=== PATIENT | female | born 1960 | race Caucasian/White ===

== ENCOUNTER → 2020-07-04 12:08 | Outpatient (CLI) | payer BC, SELFPAY ==
--- NOTE | ~2020-07-04 | MM_ITS ---
EXAMINATION: MM screening janna BI w albert HISTORY: Screening mammogram TECHNIQUE: Craniocaudal and mediolateral oblique 3-D tomosynthesis images were obtained and synthetic 2-D images were generated. CAD analysis was submitted and interpreted. COMPARISON: No prior mammogram is available for comparison at this institution. BREAST PARENCHYMAL COMPOSITION: There are scattered areas of fibroglandular density. FINDINGS: There is no evidence of suspicious mass, calcification, or architectural distortion to sugg est malignancy in either breast. There has been no suspicious interval change. IMPRESSION: 1. No mammographic evidence of malignancy. 2. Recommend routine screening mammography in one year. BI-RADS Category 1: Negative Reviewed, dictated and finalized at location A. INATION OPERATOR
--- NOTE | ~2020-07-04 | DEXA_ITS ---
Bone Density Report Name: Marj Cotton Age: 60 Sex: Female Ethnicity: White Date of : 1960 Indication: postmenopausal; screening for osteoporosis; height loss; Referring Provider: Maryann Ahn Study: Bone densitometry was performed. Exam Date: July 04, 2020 Accession number: [id number] Bone Density: Region BMD T-score Z-score Classification AP Spine (L1-L4) 0.814 -2.1 -0.6 Osteopenia Femoral Neck (Left) 0.665 -1.7 -0.3 Osteopenia Total Hip (Left) 0.765 -1.5 -0.4 Osteopenia Femoral Neck (Right) 0.685 -1.5 -0.1 Osteopenia Total Hip (Right) 0.787 -1.3 -0.3 Osteopenia Total Hip Mean 0.776 -1.4 -0.4 Osteopenia World Health Organization criteria for BMD impression classify patients as: Normal (T-score at or above -1.0), Osteopenia (T-score between -1.0 and -2.5), or Osteoporosis (T-score at or below -2.5). 10-year Fracture Risk(1): Major Osteoporotic Fracture 8.6% Hip Fracture 1.4% Reported Risk Factors: [place] (), Neck BMD=0.665, BMI=28.3, smoking (1) FRAX(R) Version 3.08. Fracture probability calculated for an untreated patient. Fracture probability may be lower if the patient has received treatment. Clinical Information Provided by Patient: Smokes Has used the following medications: Vitamin D Patient maximum height was 65 Menopause Age: 53 No regular weight bearing exercise Drinks caffeinated beverages Onset of menses at age 12 Number of children 2 Impression: The patient has low bone mass, based on the Total Spine T-score. The patient has an estimated ten-year risk of hip fracture of 1.4% and an estimated ten-year risk of major fracture of 8.6%, based on the WHO FRAX algorithm. The patient has risk factors, including: smoking. Discussion: BONE DENSITY IS LOW AT ONE OR MORE SKELETAL SITES. This patient's lowest T-score is low at one or more skeletal sites. It meets the World Health Organization's (WHO) criteria for ?low bone mass? (T-score between -1.0 and -2.5). The patient's 10-year risk of fracture as calculated by FRAX is less than the threshold where pharmacological therapy is recommended by the National Osteoporosis Foundation (NOF). However, all treatment decisions require clinical judgment and consideration of individual patient factors, including patient preferences, comorbidities, previous drug use, risk factors not captured in the FRAX model (e.g., frailty, falls, vitamin D deficiency, increased bone turnover, interval significant decline in bone density) and possible under or overestimation of fracture risk by FRAX. The patient should follow a healthful lifestyle (good nutrition with adequate calcium and vitamin D, and appropriate weight-bearing exercise). Follow-Up: Consider repeating this study in 2 to 3 years to reassess this patient's status, or sooner i
== END ==
PROVIDERS: PCP Internal Medicine; Visit Provider Nurse Practitioner
DX: Z12.31 Encounter for screening mammogram for malignant neoplasm of breast (principal); Z13.820 Encounter for screening for osteoporosis; M85.852 Other specified disorders of bone density and structure, left thigh; M85.851 Other specified disorders of bone density and structure, right thigh
CPT/HCPCS: 77063; 77067; 77080

== ENCOUNTER → 2021-10-17 13:40 | Outpatient (CLI) | payer OTHER, SELFPAY ==
--- NOTE | ~2021-10-17 | MM_ITS ---
EXAMINATION: MM screening janna BI w albert HISTORY: Screening TECHNIQUE: Craniocaudal and mediolateral oblique 3-D tomosynthesis images were obtained and synthetic 2-D images were generated. CAD analysis was submitted and interpreted. COMPARISON: 07/04/2020 BREAST PARENCHYMAL COMPOSITION: There are scattered areas of fibroglandular density. FINDINGS: There is no evidence of suspicious mass, calcification, or architectural distortion to sugg est malignancy in either breast. There has been no suspicious interval change. IMPRESSION: 1. No mammographic evidence of malignancy. 2. Recommend routine screening mammography in one year. BI-RADS Category 1: Negative Reviewed, dictated and finalized at location A. SETTER
== END ==
PROVIDERS: PCP Internal Medicine; Visit Provider Nurse Practitioner
DX: Z12.31 Encounter for screening mammogram for malignant neoplasm of breast (principal)
CPT/HCPCS: 77063; 77067

== ENCOUNTER → 2022-02-14 07:35 | Outpatient (CLI) | payer SELFPAY ==
--- NOTE | ~2022-02-14 | CT_ITS ---
EXAMINATION: CT diagnostic chest w con DATE: 02/14/2022 08:37 INDICATION: Other specified diseases of the upper respiratory tract, tracheal nodule TECHNIQUE: Transaxial computed tomographic images of the chest were obtained after the administration of 75 cc of Omnipaque 350 intravenous contrast. The dose-length product (DLP) was 167.34 mGy-cm. Ite rative reconstruction was used. COMPARISON: None FINDINGS: There is mild emphysema. The lungs are free of focal airspace opacities. There is mild depe ndent atelectasis. No pleural effusion or pneumothorax. Calcified pulmonary nodules are consistent wi th old granulomatous disease. No pathologically enlarged thoracic lymph nodes are identified. The hea rt size is normal. There is mild thoracic spondylosis. No definite tracheal nodule is identified. IMPRESSION: 1. No acute cardiopulmonary abnormality. 2. No definite tracheal nodule identified. Comparison with any available prior imaging would be helpf ul. Reviewed, dictated and finalized at location B.
--- NOTE | ~2022-02-14 | CT_ITS ---
ORIGINAL REPORT EXAMINATION: CT diagnostic chest w con DATE: 02/14/2022 08:37 INDICATION: Other specified diseases of the upper respiratory tract, tracheal nodule TECHNIQUE: Transaxial computed tomographic images of the chest were obtained after the administration of 75 cc of Omnipaque 350 intravenous contrast. The dose-length product (DLP) was 167.34 mGy-cm. Ite rative reconstruction was used. COMPARISON: None FINDINGS: There is mild emphysema. The lungs are free of focal airspace opacities. There is mild depe ndent atelectasis. No pleural effusion or pneumothorax. Calcified pulmonary nodules are consistent wi th old granulomatous disease. No pathologically enlarged thoracic lymph nodes are identified. The hea rt size is normal. There is mild thoracic spondylosis. No definite tracheal nodule is identified. IMPRESSION: 1. No acute cardiopulmonary abnormality. 2. No definite tracheal nodule identified. Comparison with any available prior imaging would be helpf ul. ADDENDUM #1 This report was recreated 03/29/2022. Original report was signed by Comparison is made to outside hospital CT dated 01/14/2022. The tracheal nodule in question is seen onl y on the first image of the current study. There is overall no change in size and lesion is lower in attenuation than on the comparison CT, suggestive of a benign finding. Recommend follow-up CT of the neck with contrast in six months. Reviewed, dictated and finalized at location L. IMPRESSION: 1. No acute cardiopulmonary abnormality. 2. No definite tracheal nodule identified. Comparison with any available prior imaging would be helpful.
[2022-03-06 10:36] LABS: Estimated Glomerular Filt Rate > 60
== END ==
PROVIDERS: PCP Internal Medicine; Visit Provider Nurse Practitioner
DX: J39.8 Other specified diseases of upper respiratory tract (principal)
CPT/HCPCS: 99199; 36415; 71260; 82565; Q9967

== ENCOUNTER → 2022-07-12 13:52 | Outpatient (CLI) | payer OTHER, SELFPAY ==
--- NOTE | ~2022-07-12 | DEXA_ITS ---
Bone Density Report Name: MEGHAN VELÁSQUEZ Age: 62 Sex: Female Ethnicity: White Date of : 1960 Indication: osteopenia; height loss; prior fracture;postmenopausal Referring Provider: Maryann Ahn Study: Bone densitometry was performed. Exam Date: July 12, 2022 Accession number: [id number] Bone Density: Region BMD T-score Z-score Classification AP Spine (L1-L4) 0.830 -2.0 -0.3 Osteopenia Femoral Neck (Left) 0.676 -1.6 -0.1 Osteopenia Total Hip (Left) 0.747 -1.6 -0.5 Osteopenia Femoral Neck (Right) 0.678 -1.5 -0.1 Osteopenia Total Hip (Right) 0.751 -1.6 -0.4 Osteopenia Total Hip Mean 0.749 -1.6 -0.5 Osteopenia World Health Organization criteria for BMD impression classify patients as: Normal (T-score at or above -1.0), Osteopenia (T-score between -1.0 and -2.5), or Osteoporosis (T-score at or below -2.5). 10-year Fracture Risk(1): Major Osteoporotic Fracture 15% Hip Fracture 2.5% Reported Risk Factors: [place] (), Neck BMD=0.678, BMI=26.6, previous fracture, smoking (1) FRAX(R) Version 3.08. Fracture probability calculated for an untreated patient. Fracture probability may be lower if the patient has received treatment. Previous Exams: Region Exam Age BMD T-score BMD Change BMD Change Date g/cm2 vs Baseline vs Previous AP Spine(L1-L4) 07/12/2022 62 0.830 -2.0 0.016 0.016 07/04/2020 60 0.814 -2.1 Total Hip(Left) 07/12/2022 62 0.747 -1.6 -0.017 -0.017 07/04/2020 60 0.765 -1.5 Total Hip(Right) 07/12/2022 62 0.751 -1.6 -0.036* -0.036* 07/04/2020 60 0.787 -1.3 *Denotes significance at 95% confidence level, LSC for AP Spine = 0.022 g/cm2, LSC for Total Hip = 0.027 g/cm2 Clinical Information Provided by Patient: Has had a low trauma fracture Smokes Has used the following medications: Vitamin D Patient maximum height was 65 Menopause Age: 53 No regular weight bearing exercise Does not regularly consume dairy products Drinks caffeinated beverages Onset of menses at age 12 Number of children 2 Impression: The patient has low bone mass, based on the Total Spine T-score. The patient has an estimated ten-year risk of hip fracture of 2.5% and an estimated ten-year risk of major fracture of 15%, based on the WHO FRAX algorithm. The patient has risk factors, including: smoking, previous fracture. The BMD for the Total Hip(Right) decreased, changing by -0.036
== END ==
PROVIDERS: PCP Nurse Practitioner; Visit Provider Nurse Practitioner
DX: Z78.0 Asymptomatic menopausal state (principal); Z13.820 Encounter for screening for osteoporosis; M85.88 Other specified disorders of bone density and structure, other site; M85.852 Other specified disorders of bone density and structure, left thigh; M85.851 Other specified disorders of bone density and structure, right thigh
CPT/HCPCS: 77080

== ENCOUNTER → 2022-08-20 13:49 | Outpatient (CLI) | payer OTHER, SELFPAY ==
--- NOTE | ~2022-08-20 | CT_ITS ---
EXAMINATION: CT soft tissue neck w con DATE: 08/20/2022 14:22 INDICATION: Tracheal nodule. TECHNIQUE: Computed tomography (CT) of the neck was performed with 75 mL Omnipaque-350 intravenous co ntrast. Automated exposure control and iterative reconstruction technique were employed. The dose-samia gth product was 387.28 mGy-cm. COMPARISON: Chest CT 02/14/2022, chest CT 01/14/2022 FINDINGS: There are no pathologically enlarged lymph nodes. There is no visible plaque in the proxima l internal carotid arteries. There is focal thickening of anterior wall of the superior trachea. Ther e is mild mucosal thickening in the paranasal sinuses. The mastoid air cells are normal. There is sev ere cervical spondylosis. IMPRESSION: 1. Focal thickening of the anterior wall of the superior trachea, stable from 01/14/2022, likely benign . Reviewed, dictated and finalized at location A. CTION MOLDING SUPERVISOR IMPRESSION: 1. Focal thickening of the anterior wall of the superior trachea, stable from , likely benign.
[2022-08-20 14:13] LABS: Estimated Glomerular Filt Rate > 60
== END ==
PROVIDERS: PCP Nurse Practitioner; Visit Provider Nurse Practitioner
DX: J39.8 Other specified diseases of upper respiratory tract (principal)
CPT/HCPCS: 70491; Q9967

== ENCOUNTER → 2023-05-30 13:43 | Outpatient (CLI) | payer OTHER, SELFPAY ==
--- NOTE | ~2023-05-30 | MM_ITS ---
EXAMINATION: MM screening janna BI w albert HISTORY: Screening TECHNIQUE: Craniocaudal and mediolateral oblique 3-D tomosynthesis images were obtained and synthetic 2-D images were generated. CAD analysis was submitted and interpreted. COMPARISON: No prior mammogram is available for comparison at this institution. BREAST PARENCHYMAL COMPOSITION: There are scattered areas of fibroglandular density. FINDINGS: There is no evidence of suspicious mass, calcification, or architectural distortion to sugg est malignancy in either breast. There has been no suspicious interval change. IMPRESSION: 1. No mammographic evidence of malignancy. 2. Recommend routine screening mammography in one year. BI-RADS Category 1: Negative Reviewed, dictated and finalized at location A.
== END ==
PROVIDERS: PCP Nurse Practitioner; Visit Provider Nurse Practitioner
DX: Z12.31 Encounter for screening mammogram for malignant neoplasm of breast (principal)
CPT/HCPCS: 77063; 77067

== ENCOUNTER 2024-11-11 15:11 | Outpatient (CLI) | payer MEDICARE, SELFPAY ==
[2024-11-11 15:29] LABS: Kit Draw Collected
--- OUTSIDE RECORDS SUMMARY | 2024-11-11 16:28 | XMS_ITS ---
Author Organization [facility] Address [address] [place] [address] Care Team Providers Care Personal Banking Representative Name Role Phone No, Physician Unavailable Alfredo Healy DO Primary Care Provider [phone] Active Problems Problem Noted Date Diagnosed Date Syncope and collapse 01/14/2022 Assessment & Plan (01/17/2022 8:48 AM CDT): Etiology sounds most consistent with vasovagal (shortly after standing up from bed) with possible contribution of dehydration after working in garage all day prior, plus has baseline bradycardia from propranolol. History and lactate are inconsistent with generalized tonic/clonic seizure. No cardiac prodrome. ECG with sinus leandro. Trop undetectable x2. CT PE without pulmonary embolism. TTE with normal EF and overall unremarkable. Cardiology consulted per request of anesthesia, agree with vasovagal diagnosis, agree with holding propranolol. Stopped propranolol, bradycardia improved. Assessment & Plan (01/16/2022 4:19 PM CDT): Etiology sounds most consistent with vasovagal (shortly after standing up from bed) with possible contribution of dehydration after working in garage all day prior, plus has bradycardia from propranolol. History and lactate are inconsistent with generalized tonic/clonic seizure. No cardiac prodrome. ECG with sinus leandro. Trop <[address] PE without pulmonary embolism. Cardiology consulted per request of anesthesia, agree with vasovagal diagnosis, agree with holding propranolol - hold propranolol - TTE with normal EF and overall unremarkable -CTM on telemetry, showing persistent mild sinus bradycardia Assessment & Plan (01/15/2022 12:04 PM CDT): Etiology sounds most consistent with vasovagal (shortly after standing up from bed) with possible contribution of dehydration after working in garage all day prior, plus has bradycardia from propranolol. History and lactate are inconsistent with generalized tonic/clonic seizure. No cardiac prodrome. ECG with sinus leandro. Trop <[address] PE without pulmonary embolism. - Cont IVF for now - hold propranolol - TTE with normal EF and overall unremarkable COVID-19 01/14/2022 Assessment & Plan (01/17/2022 8:50 AM CDT): Noted incidentally on routine pre-admission/pre-op testing, PCR positive on 01/14. Pt thinks her cough is about the same as usual smoker's cough. Report of desaturation in ED but not documented in vitals. Was on room air on floor, however post- operatively has required some oxygen 0-2L intermittently. Weaned to room air the day prior to discharge. CT chest with clear lungs. Finished remdesivir for 3 day course (01/14- 01/16) to reduce risk of progression. Did not treat with steroids. Will finish 10-day quarantine on 01/24. Assessment & Plan (01/16/2022 4:24 PM CDT): Pt thinks her cough is about the same as usual. Report of desaturation in ED but not documented in vitals. Was on room air, however post-operatively has required some oxygen 0-2L intermittently. Continue to wean oxygen - Finished remdesivir for 3 day course (01/14-01/16) to reduce risk of progression -CT chest with clear lungs - holding on dexamethasone Assessment & Plan (01/15/2022 12:02 PM CDT): Pt thinks her cough is about the same as usual. Report of desaturation in ED but not documented in vitals and now SpO2 97-100% on RA. Took off supplemental O2, saturating well on room air - remdesivir for 3 day course (01/14-01/16) to reduce risk of progression - holding on dexamethasone unless she develops hypoxia Bicytopenia 01/14/2022 Cancer Staging:Clinical: Unsigned Assessment & Plan (01/17/2022 8:51 AM CDT): Noted mild leukopenia and thrombocytopenia. HIV and HCV negative. Post-op, again developed mild thrombocytopenia, but no bleeding. May be related to COVID. Assessment & Plan (01/16/2022 4:25 PM CDT): Resolved. HIV and HCV negative.. Post-op, again developed mild thrombocytopenia. Repeat CBC in AM. Assessment & Plan (01/15/2022 12:01 PM CDT): Resolved. HIV and HCV negative.. Tracheal nodule 01/14/2022 Assessment & Plan (01/17/2022 8:52 AM CDT): Incidental finding on CT PE. Differential includes mucus and neoplasm. Needs repeat CT scan of chest with contrast in 1 month per radiology recs. Patient informed of need for follow-up and she agrees to address with PCP. Assessment & Plan (01/16/2022 4:25 PM CDT): Incidental finding on CT PE. Differential includes mucus and neoplasm. Plan for repeat CT scan in 1 month per radiology recs. Assessment & Plan (01/15/2022 12:05 PM CDT): Incidental finding on CT PE. Differential includes mucus and neoplasm. Plan for repeat CT scan in 1 month per radiology recs. Bimalleolar ankle fracture, right, closed, initial encounter 01/14/2022 Overview (01/15/2022): Added automatically from request for surgery [id number] UTI (urinary tract infection) 03/03/2019 Acute pain due to trauma 03/03/2019 Anxiety 03/03/2019 Closed displaced trimalleolar fracture of right ankle 03/02/2019 Assessment & Plan (01/17/2022 8:46 AM CDT): Reduced by Orthopedics in the ED. ORIF performed 01/15. - pain control with percocet 10/325mg q 4 PRN then hydromorphone second line for breakthrough - vit D checked given prior fractures, normal at 40. Consider outpatient DEXA - DVT proph with lovenox in place, ASA 81mg BID x14 days at discharge. - D/c home today, outpatient f/u with ortho Assessment & Plan (01/16/2022 4:17 PM CDT): Reduced by Orthopedics in the ED. ORIF performed 01/15. - pain control with oxy 5 q 4 PRN then hydromorphone second line for breakthrough - vit D checked given prior fractures, normal at 40. Consider outpatient DEXA - DVT proph with lovenox in place, ASA 81mg BID x14 days at discharge. - anticipate D/C home tomorrow Assessment & Plan (01/15/2022 12:02 PM CDT): Reduced by Orthopedics in the ED. They plan to perform ORIF today. - pain control with oxy 5 q 4 PRN then hydromorphone second line for breakthrough - vit D check - DVT proph - anticipate D/C home as early as tomorrow Primary insomnia 03/13/2016 Tobacco use disorder 03/13/2016 Assessment & Plan (01/17/2022 8:47 AM CDT): Offered patch, she declines. 0.5 PPD. Assessment & Plan (01/16/2022 4:17 PM CDT): Offered patch, she declines. 0.5 PPD. Assessment & Plan (01/14/2022 6:19 PM CDT): Offered patch, she declines. 0.5 PPD. Osteopenia 05/02/2015 Assessment & Plan (01/17/2022 8:47 AM CDT): Patient reports. Vit D level normal, consider outpatient DEXA. Assessment & Plan (01/16/2022 4:17 PM CDT): Patient reports. Vit D level normal, consider outpatient DEXA. Assessment & Plan (01/14/2022 6:18 PM CDT): Patient reports. Checking Vit D level. Vitamin D insufficiency 03/09/2015 Essential tremor 01/18/2015 Assessment & Plan (01/17/2022 8:47 AM CDT): Says she previously had bradycardia issues with propranolol 20 so is on 10 mg. Now with syncope will hold it. Started gabapentin 300 BID as replacement for propranolol, could also trial topiramate in future. Patient reports improvement in tremor. Follow up with PCP. Assessment & Plan (01/16/2022 4:18 PM CDT): Says she previously had bradycardia issues with propranolol 20 so is on 10 mg. Now with syncope will hold it. Started gabapentin 300 BID as replacement for propranolol, could also trial topiramate in future. Follow up with PCP. Assessment & Plan (01/15/2022 12:03 PM CDT): Says she previously had bradycardia issues with propranolol 20 so is on 10 mg. Now with syncope will hold it. Started gabapentin 300 BID as replacement for propranolol, could also trial topiramate in future. Personal history of malignant neoplasm of skin 0 11/20/2013 Overview (04/01/2019): IMO cleanup 10.1.17 IMO 4..2018 Regulatory Update Basal cell carcinoma of left shoulder 09/04/2013 Actinic keratosis 06/02/2013 Current Treatment and Therapy Plans No current plan information found. Past Treatment and Therapy Plans No past plan information found. Lifetime Dose Tracking * Chemical Lifetime Dose Automatic Entry Manual Entr y Fluoro Time 4.318 minutes 4.318 minutes 0 minutes Air kerma at the reference point (Ka,r) 9.92 mGy 9 .92 mGy 0 mGy DLP 1,583 mGycm 1,583 mGycm 0 mGycm Resolved Problems Problem Noted Date Diagnosed Date Resolved Date Closed fracture of right elbow 03/17/2020 01/14/2022 Overview (03/17/2020): Added automatically from request for surgery [id number]
--- OUTSIDE RECORDS SUMMARY | 2024-11-11 16:28 | XMS_ITS | Clinical Summary ---
Author Organization [facility] Address [address] [place] [address] Care Team Providers Care Brine Maker Name Role Phone No, Physician Unavailable Alfredo Healy DO Primary Care Provider [phone] Allergies Active Allergy Reactions Criticality Noted Date Comments Sulfa (Sulfonamide Antibiotics) Hives Medium 05/13 Medications cholecalciferol (VITAMIN D-3) 25 mcg (1,000 unit) tablet Take 1,000 Units by mouth 2 times daily 10/11/2017 Active escitalopram (LEXAPRO) 20 mg tablet Take 20 mg by mouth daily 10/13/2018 Active gabapentin (NEURONTIN) 300 mg capsuleIndicati ons:Essential Tremor Take 1 capsule (300 mg total) by mouth 2 (two) times a day 60 capsule 1 01/17/2022 Active Active Problems Problem Noted Date Diagnosed Date [...] (01/15/2022): Added automatically from request for surgery [id number] UTI (urinary tract infection) 03/03/2019 Acute pain [...] skin 0 11/20/2013 Overview (04/01/2019): IMO cleanup ..17 IMO 4..2018 Regulatory Update Basal cell carcinoma of left shoulder 09/04/2013 Actinic keratosis 06/02/2013 Resolved Problems Problem Noted Date Diagnosed Date Resolved Date Closed fracture of right elbow 03/17/2020 01/14/2022 Overview (03/17/2020): Added automatically from request for surgery [id number] Immunizations Immunization Administration Dates Next Due Tdap 02/04/2012 Surgical History Surgery Date Site/Laterality Comments ORIF ANKLE FRACTURE 08/12/2018 - 08/11/2019 Left ELBOW FRACTURE SURGERY 08/12/2019 - 08/11/2020 Right WRIST FRACTURE SURGERY 08/12/2019 - 08/11/2020 Left COLONOSCOPY WISDOM TOOTH EXTRACTION Medical History Medical History Date Comments Anxiety Osteopenia Essential tremor Tobacco use disorder Family History Medical History Relation Name Comments PONV Mother Relation Name Status Comments Mother Social History Tobacco Use Types Packs/Day Years Used Date Smoking Tobacco: Every Day Cigarettes Smokeless Tobacco: Never Alcohol Use Standard Drinks/Week Comments Never 0 (1 standard drink = 0.6 oz pur e alcohol) Social Connection and Isolat ion Panel [NHANES] Answer Date Recorded In a typical week, how many times do you talk on the phone with family, friends, or neighbors? Three times a week 01/18/2022 How often do you get togethe r with friends or relatives? Three times a week 01/18/2022 How often do you attend chur ch or latter-day services? More than 4 times per year 01/18/2022 Do you belong to any clubs o r organizations such as evangelical groups, unions, fraternal or athletic groups, or school groups? Yes 01/18/2022 How often do you attend meet ings of the clubs or organizations you belong to? 1 to 4 times per year 01/18/2022 Are you , , di vorced, , never , or living with a partner? 01/18/2022 AUDIT-C Answer Date Recorded Frequency of Alcohol Consumption Never 03/03/2019 Average Number of Drinks Not on file 019 Frequency of Binge Drinking Not on file 02/10 Overall Financial Resource Strain (CARDIA) Answe r Date Recorded How hard is it for you to pa y for the very basics like food, housing, medical care, and heating? Not hard at all 01/18/2022 Hunger Vital Sign Answer Date Recorded Within the past 12 months, y ou worried that your food would run out before you got the money to buy more. Never true 01/19/20 Within the past 12 months, t he food you bought just didn't last and you didn't have money to get more. Never true 01/18/2022 PRAPARE - Transportation Answer Date Re corded In the past 12 months, has l ack of transportation kept you from medical appointments or from getting medications? No 04/2022 In the past 12 months, has l ack of transportation kept you from meetings, work, or from getting things needed for daily living? No 01/18/2022 Housing Stability Vital Sign Answer Tre e Recorded In the last 12 months, was t here a time when you were not able to pay the mortgage or rent on time? No 01/18/2022 In the last 12 months, how many places have you lived? 1 01/18/2022 In the last 12 months, was t here a time when you did not have a steady place to sleep or slept in a usp (including now)? No 01/18/2022 Comments No Sex and Gender Information Value Date Recorded Sex Assigned at Not on file Legal Sex Female 2:04 PM CDT Gender Identity Not on file Sexual Orientation Not on file Obstetrics History Last Filed Vital Signs Vital Sign Reading Time Taken Comments Blood Pressure 107/53 01/17/2022 7:45 AM CDT Pulse 61 01/17/2022 7:45 AM CDT Temperature 36.9 C (98.4 F) 01/17/2022 7:45 AM CDT Respiratory Rate 16 01/17/2022 7:45 AM CDT Oxygen Saturation 94% 01/17/2022 7:45 AM CDT Inhaled Oxygen Concentration - - Weight 69.9 kg (154 lb) 01/14/2022 9:04 AM CDT Height 162.6 cm (5' 4 ) 01/14/2022 9:04 AM CDT Body Mass Index 26.43 01/14/2022 9:04 AM CDT Plan of Treatment Health Maintenance Due Date Last Done Comments Breast Cancer Screening-Mammogram 1959 Cervical Cancer Screening 1959 Colon Cancer Screening-Colonoscopy 1959 Depression Screening 1959 Osteoporosis Screening-Bone Density Scan 1959 Hepatitis B Screening 1977 Pneumococcal vaccine 65+ (1 of 2 - PCV) 1978 Zoster Vaccine (1 of 2) 2009 DTaP/Tdap/Td Vaccine (2 - Td or Tdap) 02/03/2022 Fall Risk Assessment 01/17/2023 01/17/2022 Well Visit 65+ 2024 Covid-19 Vaccine (3 - season) 04/12/202406/2021, 10/25/2020 Influenza Vaccine (#1) 2024 Hepatitis C Screening Completed 01/14/2022 Medical Devices Implanted Type Area Blending Machine Feeder Device Identifier Shelf Expiration Date Model / Serial / Lot Synthes Carbon Timo Implanted:Qty: 1 on 03/03/2019 by Marco Frye MD at [facility] Left: Leg Synthes I 394.88 / / Description:IMPLANT TIMES AR E APPROXIMATED 11 X 450 Carbon Timo Implanted:Qty: 1 on 03/03/2019 by Marco Frye MD at [facility] Left: Leg Synthes I [id number] / / Description:IMPLANT TIMES AR E APPROXIMATED 11 X 400 Carbon Timo Implanted:Qty: 1 on 03/03/2019 by Marco Frye MD at [facility] Left: Leg Synthes I [id number] / / Description:IMPLANT TIMES AR E APPROXIMATED 11 X 200 Carbon Timo Implanted:Qty: 1 on 03/03/2019 by Marco Frye MD at [facility] Left: Leg Synthes I [id number] / / Description:IMPLANT TIMES AR E APPROXIMATED Large Combo Clamp Implanted:Qty: 7 on 03/03/2019 by Marco Frye MD at [facility] Left: Leg Synthes I [id number] / / Description:IMPLANT TIMES AR E APPROXIMATED Synthes 294.55 Schanz 5mm 170mm 50mm Blunt Trocar Point Xlong Screw External - [id number] Implanted:Qty: 2 on 03/03/2019 by Marco Frye MD at [facility] Left: Leg Synthes I 294.55 / / Description:IMPLANT TIMES AR E APPROXIMATED Trans Calc Pin Implanted:Qty: 1 on 03/03/2019 by Marco Frye MD at [facility] Left: Leg Synthes I [id number] / / Description:IMPLANT TIMES AR E APPROXIMATED Protective Cap 5.0 Implanted:Qty: 1 on 03/03/2019 by Marco Frye MD at [facility] Left: Leg Synthes I [id number] / / Description:IMPLANT TIMES AR E APPROXIMATED Synthes 204.830 3.5mm 6mm 30mm 2.5mm Self Tap Small Hexagonal Socket Low Profile - [id number] Implanted:Qty: 1 on 03/10/2019 by Marco Frye MD at [facility] Synthes I 204.830 / / Synthes 204.828 3.5mm 6mm 28mm 2.5mm Self Tap Small Hexagonal Socket Low Profile - [id number] Implanted:Qty: 1 on 03/10/2019 by Marco Frye MD at [facility] Synthes I 204.828 / / Synthes 204.826 3.5mm 6mm 26mm 2.5mm Self Tap Small Hexagonal Socket Low Profile - [id number] Implanted:Qty: 1 on 03/10/2019 by Marco Frye MD at [facility] Synthes I 204.826 / / Synthes 204.842 3.5mm 6mm 42mm 2.5mm Self Tap Small Hexagonal Socket Low Profile - [id number] Implanted:Qty: 2 on 03/10/2019 by Marco Frye MD at [facility] Synthes I 204.842 / / Synthes 247.370 Lcp Pro-Serg 97mm 12 Hole Adaption Low Profile Cut To Length Plate - [id number] Implanted:Qty: 1 on 03/10/2019 by Marco Frye MD at [facility] Synthes I 247.370 / / Synthes 202.878 2.7mm 5mm 18mm 2.5mm Self Tap Stardrive Cortical T8 Screw Bone - [id number] Implanted:Qty: 1 on 03/10/2019 by Marco Frye MD at [facility] Synthes I 202.878 / / Synthes 202.880 2.7mm 5mm 20mm 2.5mm Self Tap Stardrive Cortical T8 Screw Bone - [id number] Implanted:Qty: 1 on 03/10/2019 by Marco Frye MD at [facility] Synthes I 202.880 / / Synthes 202.876 2.7mm 5mm 16mm 2.5mm Self Tap Stardrive Cortical T8 Screw Bone - [id number] Implanted:Qty: 2 on 03/10/2019 by Marco Frye MD at [facility] Synthes I 202.876 / / Synthes 202.888 2.7mm 5mm 28mm 2.5mm Self Tap Stardrive Cortical T8 Screw Bone - [id number] Implanted:Qty: 1 on 03/10/2019 by Marco Frye MD at [facility] Synthes I 202.888 / / Synthes 202.886 2.7mm 5mm 26mm 2.5mm Self Tap Stardrive Cortical T8 Screw Bone - [id number] Implanted:Qty: 1 on 03/10/2019 by Marco Frye MD at [facility] Synthes I 202.886 / / Synthes 241.361 Lcp 12mm [id number] .7mm 6 Hole Collar 1/3 Tubular Plate Bone - [id number] Implanted:Qty: 1 on 03/10/2019 by Marco Frye MD at [facility] Synthes I 241.361 / / Synthes 204.875 3.5mm 6mm 75mm 2.5mm Self Tap Small Hexagonal Socket Low Profile - [id number] Implanted:Qty: 1 on 03/10/2019 by Marco Frye MD at [facility] Synthes I 204.875 / / Synthes 204.870 3.5mm 6mm 70mm 2.5mm Self Tap Small Hexagonal Socket Low Profile - [id number] Implanted:Qty: 1 on 03/10/2019 by Marco Frye MD at [facility] Synthes I 204.870 / / Synthes 204.840 3.5mm 6mm 40mm 2.5mm Self Tap Small Hexagonal Socket Low Profile - [id number] Implanted:Qty: 1 on 03/10/2019 by Marco Frye MD at [facility] Synthes I 204.840 / / Synthes 204.836 3.5mm 6mm 36mm 2.5mm Self Tap Small Hexagonal Socket Low Profile - [id number] Implanted:Qty: 1 on 03/10/2019 by Marco Frye MD at [facility] Synthes I 204.836 / / Synthes 241.151 Lcp Combi 30f57v8.5mm 3 Hole Head 5 Hole Shaft Right Angle T - [id number] Implanted:Qty: 1 on 03/10/2019 by Marco Frye MD at [facility] Synthes I 241.151 / / Depuy Mitek [id number] Gii Quickanchor Plus Ethibond 2 Cp-2 Milroy Suture - S0 - [id number] Implanted:Qty: 1 on 03/18/2020 by Arnaud Iraheta MD at [facility] Right: Elbow Depuy Mitek 07/11/2024 [id number] / 0 / [id number] Ac[employer] 30-0256 3.5mm 10mm Hexalobe Screw Bone Titanium Nonsterile Small Fragment - [id number] Implanted:Qty: 3 on 03/18/2020 by Diane Huff MD at [facility] Left: Radius [employer] 30-0256 / / [employer] 70-0370 Acu-Loc 2 65mm Reduce Profile Window Radius Left Distal Volar - [id number] Implanted:Qty: 1 on 03/18/2020 by Diane Huff MD at [facility] Left: Radius [employer] 70-0370 / / [employer] Co-N2320 2.3mm 20mm Nontoggle Hexagonal Cortical Screw Bone Titanium - [id number] Implanted:Qty: 1 on 03/18/2020 by Diane Huff MD at [facility] Left: Radius [employer] CO-N2320 / / [employer] Co-T2316 2.3mm 16mm Lock Hexagonal Cortical Full Thread Screw Bone - [id number] Implanted:Qty: 4 on 03/18/2020 by Diane Huff MD at [facility] Left: Radius [employer] CO-T2316 / / [employer] 30-0258 3.5mm 14mm Hexalobe Screw Bone Titanium Nonsterile Small Fragment - [id number] Implanted:Qty: 1 on 03/18/2020 by Diane Huff MD at [facility] Left: Radius [employer] 30-0258 / / Synthes 2.7mm 5mm 18mm 2.5mm Self Tap Stardrive Cortical T8 Screw Bone 202.878 - [id number] Implanted:Qty: 2 on 01/15/2022 by Arnaud Iraheta MD at [facility] Right: Ankle Synthes I 202.878 / / Synthes Lcp Combi 99mm 5 Hole Fibula Right Distal Lateral Contour Plate 02.112.140 - [id number] Implanted:Qty: 1 on 01/15/2022 by Arnaud Iraheta MD at [facility] Right: Ankle Synthes I 02.112.140 / / Synthes 2.7mm 2.1mm 14mm Self Tap Lock Stardrive Thread Head Profile T8 202.214 - [id number] Implanted:Qty: 3 on 01/15/2022 by Arnaud Iraheta MD at [facility] Right: Ankle Synthes I 202.214 / / Synthes 2.7mm 2.1mm 16mm Self Tap Lock Stardrive Thread Head Profile T8 202.216 - [id number] Implanted:Qty: 2 on 01/15/2022 by Arnaud Iraheta MD at [facility] Right: Ankle Synthes I 202.216 / / Synthes 3.5mm 6mm 14mm 2.5mm Self Tap Small Hexagonal Socket Low Profile 204.814 - [id number] Implanted:Qty: 1 on 01/15/2022 by Arnaud Iraheta MD at [facility] Right: Ankle Synthes I 204.814 / / Synthes 3.5mm 6mm 12mm 2.5mm Self Tap Small Hexagonal Socket Low Profile 204.812 - [id number] Implanted:Qty: 2 on 01/15/2022 by Arnaud Iraheta MD at [facility] Right: Ankle Synthes I 204.812 / / Synthes 3.5mm 6mm 65mm 2.5mm Self Tap Small Hexagonal Socket Low Profile 204.865 - [id number] Implanted:Qty: 1 on 01/15/2022 by Arnaud Iraheta MD at [facility] Right: Ankle Synthes I 204.865 / / Explanted Type Area Blending Machine Feeder Device Identifier Shelf Expiration Date Model / Serial / Lot Synthes 204.842 3.5mm 6mm 42mm 2.5mm Self Tap Small Hexagonal Socket Low Profile - [id number] Explanted:Qty: 1 on 03/10/2019 at [facility] Synthes I 204.842 / / Procedures Procedure Name Priority Date/Time Associated Diagnosis Comments HEPATITIS C ANTIBODY Routine 01/14/2022 10:11 PM CDT from Last 3 Months or Most Recently Relevant to Health Maintenance Results * Hepatitis C antibody (01/14/2022 10:11 PM CDT) Hep C Ab Nonreactive Nonreactive [facility] Comment:Antibodies to HCV no t detected. Does NOT exclude the possibility of recent exposure to HCV. Blood 01/14/2022 10:1 1 PM CDT 01/14/2022 11:24 PM CDT Dudley Siddiqui MD LAB MICROBIOLOGY - GENER AL ORDERABLES Edited Result - Final [facility] [place] [address] from Last 3 Months or Most Recently Relevant to Health Maintenance Insurance CIGNA CIGNA CIGNA Advance Directives For more information, please contact: [phone] * Full Code (Latest Code Status on File) Date Activated Date Inactivated Comments 01/15/2022 8:54 PM 01/17/2022 3:15 PM * Full Code Date Activated Date Inactivated Comments 01/14/2022 5:46 PM 01/15/2022 8:54 PM * Full Code Date Activated Date Inactivated Comments 03/17/2020 11:22 PM 03/19/2020 7:29 PM * Full Code Date Activated Date Inactivated Comments 03/03/2019 11:09 AM 03/05/2019 7:49 PM Care Teams Brine Maker Relationship Specialty Start Date End Date Alfredo Healy DO PCP - General 05/23/20 No, Physician 03/19/20
--- OUTSIDE RECORDS SUMMARY | 2024-11-11 16:28 | XMS_ITS | Referral Summary ---
Author Organization [facility] Address [address] [place] [address] Care Team Providers Care Community Development Worker Name Role Phone No, Physician Unavailable Alfredo Healy DO Primary Care Provider [phone]- [phone] Allergies Active Allergy Reactions Criticality Noted Date [...] (01/15/2022): Added automatically from request for surgery [id number] UTI (urinary tract infection) 03/03/2019 Acute pain [...] (03/17/2020): Added automatically from request for surgery [id number] Immunizations Immunization Administration Dates Next Due Tdap 02/04/2012 Social History Tobacco Use Types Packs/Day Years [...] often do you attend chur ch or orthodoxy services? More than 4 times per year 01/18/2022 Do you belong to any clubs o r organizations such as synagogue groups, unions, fraternal or athletic groups, or [...] money to buy more. Never true 01/19/20 22 Within the past 12 months, t he [...] place to sleep or slept in a long term (including now)? No 01/18/2022 Comments No Sex and Gender Information Value Date Recorded Sex Assigned at Not on file Legal Sex Female 2:04 PM CDT Gender Identity Not on file Sexual Orientation Not on file Last Filed Vital Signs Vital Sign Reading [...] 01/14/2022 9:04 AM CDT Plan of Treatment Not on file Medical Devices Implanted Type Area Freezer Machine Operator Device Identifier Shelf Expiration Date Model / Serial / Lot Synthes Carbon Timo Implanted:Qty: 1 on 03/03/2019 by Marco Frye MD at [facility] Left: Leg Synthes I 394.88 / / Description:IMPLANT TIMES AR E APPROXIMATED 11 X 450 Carbon Timo Implanted:Qty: 1 on 03/03/2019 by Marco Frye MD at [facility] Left: Leg Synthes I [id number] / / Description:IMPLANT TIMES AR E APPROXIMATED 11 X 400 Carbon Timo Implanted:Qty: 1 on 03/03/2019 by Marco Frye MD at [facility] Left: Leg Synthes I [id number] / / Description:IMPLANT TIMES AR E APPROXIMATED 11 X 200 Carbon Timo Implanted:Qty: 1 on 03/03/2019 by Marco Frye MD at [facility] Left: Leg Synthes I [id number] / / Description:IMPLANT TIMES AR E APPROXIMATED Large Combo Clamp Implanted:Qty: 7 on 03/03/2019 by Marco Frye MD at [facility] Left: Leg Synthes I [id number] / / Description:IMPLANT TIMES AR E APPROXIMATED Synthes 294.55 Schanz 5mm 170mm 50mm Blunt Trocar Point Xlong Screw External - [id number] Implanted:Qty: 2 on 03/03/2019 by Marco Frye MD at [facility] Left: Leg Synthes I 294.55 / / Description:IMPLANT TIMES AR E APPROXIMATED Trans Calc Pin Implanted:Qty: 1 on 03/03/2019 by Marco Frye MD at [facility] Left: Leg Synthes I [id number] / / Description:IMPLANT TIMES AR E APPROXIMATED Protective Cap 5.0 Implanted:Qty: 1 on 03/03/2019 by Marco Frye MD at [facility] Left: Leg Synthes I [id number] / / Description:IMPLANT TIMES AR E APPROXIMATED Synthes 204.830 3.5mm 6mm 30mm 2.5mm Self Tap Small Hexagonal Socket Low Profile - [id number] Implanted:Qty: 1 on 03/10/2019 by Marco Frye MD at [facility] Synthes I 204.830 / / Synthes 204.828 3.5mm 6mm 28mm 2.5mm Self Tap Small Hexagonal Socket Low Profile - [id number] Implanted:Qty: 1 on 03/10/2019 by Marco Frye MD at [facility] Synthes I 204.828 / / Synthes 204.826 3.5mm 6mm 26mm 2.5mm Self Tap Small Hexagonal Socket Low Profile - [id number] Implanted:Qty: 1 on 03/10/2019 by Marco Frye MD at [facility] Synthes I 204.826 / / Synthes 204.842 3.5mm 6mm 42mm 2.5mm Self Tap Small Hexagonal Socket Low Profile - [id number] Implanted:Qty: 2 on 03/10/2019 by Marco Frye MD at [facility] Synthes I 204.842 / / Synthes 247.370 Lcp Pro-Serg 97mm 12 Hole Adaption Low Profile Cut To Length Plate - [id number] Implanted:Qty: 1 on 03/10/2019 by Marco Frye MD at [facility] Synthes I 247.370 / / Synthes 202.878 2.7mm 5mm 18mm 2.5mm Self Tap Stardrive Cortical T8 Screw Bone - [id number] Implanted:Qty: 1 on 03/10/2019 by Marco Frye MD at [facility] Synthes I 202.878 / / Synthes 202.880 2.7mm 5mm 20mm 2.5mm Self Tap Stardrive Cortical T8 Screw Bone - [id number] Implanted:Qty: 1 on 03/10/2019 by Marco Frye MD at [facility] Synthes I 202.880 / / Synthes 202.876 2.7mm 5mm 16mm 2.5mm Self Tap Stardrive Cortical T8 Screw Bone - [id number] Implanted:Qty: 2 on 03/10/2019 by Marco Frye MD at [facility] Synthes I 202.876 / / Synthes 202.888 2.7mm 5mm 28mm 2.5mm Self Tap Stardrive Cortical T8 Screw Bone - [id number] Implanted:Qty: 1 on 03/10/2019 by Marco Frye MD at [facility] Synthes I 202.888 / / Synthes 202.886 2.7mm 5mm 26mm 2.5mm Self Tap Stardrive Cortical T8 Screw Bone - [id number] Implanted:Qty: 1 on 03/10/2019 by Marco Frye MD at [facility] Synthes I 202.886 / / Synthes 241.361 Lcp 12mm [id number] .7mm 6 Hole Collar 1/3 Tubular Plate Bone - [id number] Implanted:Qty: 1 on 03/10/2019 by Marco Frye MD at [facility] Synthes I 241.361 / / Synthes 204.875 3.5mm 6mm 75mm 2.5mm Self Tap Small Hexagonal Socket Low Profile - [id number] Implanted:Qty: 1 on 03/10/2019 by Marco Frye MD at [facility] Synthes I 204.875 / / Synthes 204.870 3.5mm 6mm 70mm 2.5mm Self Tap Small Hexagonal Socket Low Profile - [id number] Implanted:Qty: 1 on 03/10/2019 by Marco Frye MD at [facility] Synthes I 204.870 / / Synthes 204.840 3.5mm 6mm 40mm 2.5mm Self Tap Small Hexagonal Socket Low Profile - [id number] Implanted:Qty: 1 on 03/10/2019 by Marco Frye MD at [facility] Synthes I 204.840 / / Synthes 204.836 3.5mm 6mm 36mm 2.5mm Self Tap Small Hexagonal Socket Low Profile - [id number] Implanted:Qty: 1 on 03/10/2019 by Marco Frye MD at [facility] Synthes I 204.836 / / Synthes 241.151 Lcp Combi [id number] 3 Hole Head 5 Hole Shaft Right Angle T - [id number] Implanted:Qty: 1 on 03/10/2019 by Marco Frye MD at [facility] Synthes I 241.151 / / Depuy Mitek [id number] Gii Quickanchor Plus Ethibond 2 Cp-2 [place] Suture - S0 - [id number] Implanted:Qty: 1 on 03/18/2020 by Arnaud Iraheta MD at [facility] Right: Elbow Depuy Mitek 07/11/2024 [id number] / 0 / [id number] Ac[employer] 30-0256 3.5mm 10mm Hexalobe Screw Bone Titanium Nonsterile Small Fragment - [id number] Implanted:Qty: 3 on 03/18/2020 by Diane Huff MD at [facility] Left: Radius [employer] 30-0256 / / [employer] 70-0370 Acu-Loc 2 65mm Reduce Profile Window Radius Left Distal Volar - [id number] Implanted:Qty: 1 on 03/18/2020 by Diane Huff MD at [facility] Left: Radius [employer] 70-0370 / / [employer] Co-N2320 2.3mm 20mm Nontoggle Hexagonal Cortical Screw Bone Titanium - [id number] Implanted:Qty: 1 on 03/18/2020 by Diane Huff MD at [facility] Left: Radius [employer] CO-N2320 / / [employer] Co-T2316 2.3mm 16mm Lock Hexagonal Cortical Full Thread Screw Bone - [id number] Implanted:Qty: 4 on 03/18/2020 by Diane Huff MD at [facility] Left: Radius [employer] CO-T2316 / / [employer] 30-0258 3.5mm 14mm Hexalobe Screw Bone Titanium Nonsterile Small Fragment - [id number] Implanted:Qty: 1 on 03/18/2020 by Diane Huff MD at [facility] Left: Radius [employer] 30-0258 / / Synthes 2.7mm 5mm 18mm 2.5mm Self Tap Stardrive Cortical T8 Screw Bone 202.878 - [id number] Implanted:Qty: 2 on 01/15/2022 by Arnaud Iraheta MD at [facility] Right: Ankle Synthes I 202.878 / / Synthes Lcp Combi 99mm 5 Hole Fibula Right Distal Lateral Contour Plate 02140 - [id number] Implanted:Qty: 1 on 01/15/2022 by Arnaud Iraheta MD at [facility] Right: Ankle Synthes I 02112.140 / / Synthes 2.7mm 2.1mm 14mm Self Tap Lock Stardrive Thread Head Profile T8 202.214 - [id number] Implanted:Qty: 3 on 01/15/2022 by Arnaud Iraheta MD at [facility] Right: Ankle Synthes I 202.214 / / Synthes 2.7mm 2.1mm 16mm Self Tap Lock Stardrive Thread Head Profile T8 202.216 - [id number] Implanted:Qty: 2 on 01/15/2022 by Arnaud Iraheta MD at [facility] Right: Ankle Synthes I 202.216 / / Synthes 3.5mm 6mm 14mm 2.5mm Self Tap Small Hexagonal Socket Low Profile 204.814 - [id number] Implanted:Qty: 1 on 01/15/2022 by Arnaud Iraheta MD at [facility] Right: Ankle Synthes I 204.814 / / Synthes 3.5mm 6mm 12mm 2.5mm Self Tap Small Hexagonal Socket Low Profile 204.812 - [id number] Implanted:Qty: 2 on 01/15/2022 by Arnaud Iraheta MD at [facility] Right: Ankle Synthes I 204.812 / / Synthes 3.5mm 6mm 65mm 2.5mm Self Tap Small Hexagonal Socket Low Profile 204.865 - [id number] Implanted:Qty: 1 on 01/15/2022 by Arnaud Iraheta MD at [facility] Right: Ankle Synthes I 204.865 / / Explanted Type Area Freezer Machine Operator Device Identifier Shelf Expiration Date Model / Serial / Lot Synthes 204.842 3.5mm 6mm 42mm 2.5mm Self Tap Small Hexagonal Socket Low Profile - [id number] Explanted:Qty: 1 on 03/10/2019 at [facility] Synthes I 204.842 / / Procedures Procedure Name Priority Date/Time Associated Diagnosis Comments HEPATITIS C ANTIBODY Routine 01/14/2022 10:11 PM CDT from Last 3 Months or Most Recently Relevant to Health Maintenance Results * Hepatitis C antibody (01/14/2022 10:11 PM CDT) Hep C Ab Nonreactive Nonreactive MEGAN ARNETT Comment:Antibodies to HCV no t detected. Does NOT exclude the possibility of recent exposure to HCV. Blood 01/14/2022 10:1 1 PM CDT 01/14/2022 11:24 PM CDT Dudley Siddiqui MD LAB MICROBIOLOGY - GENER AL ORDERABLES Edited Result - Final [facility] [place] [address] from Last 3 Months or Most Recently Relevant to Health Maintenance Insurance CIGNA CIGNA CIGNA Advance Directives For more information, please contact: [phone] * Full Code (Latest Code Status on File) Date Activated Date Inactivated Comments 01/15/2022 8:54 PM 01/17/2022 3:15 PM * Full Code Date Activated Date Inactivated Comments 01/14/2022 5:46 PM 01/15/2022 8:54 PM * Full Code Date Activated Date Inactivated Comments 03/17/2020 11:22 PM 03/19/2020 7:29 PM * Full Code Date Activated Date Inactivated Comments 03/03/2019 11:09 AM 03/05/2019 7:49 PM Care Teams Community Development Worker Relationship Specialty Start Date End Date Alfredo Healy DO PCP - General 05/23/20 No, Physician 03/19/20
--- OUTSIDE RECORDS SUMMARY | 2024-11-11 16:28 | XMS_ITS | Clinical Summary ---
Author Organization [facility] Address [address] [place] [address] Care Team Providers Care Bus Analyst Name Role Phone Unavailable Primary Care Provider Unavailabl e Social History Tobacco Use Types Packs/Day Years Used Date Smoking Tobacco: Never Assessed Comments Unknown Sex and Gender Information Value Date Recorded Sex Assigned at Not on file Legal Sex Female 1:05 PM DIRECTOR INTERNATIONAL Gender Identity Not on file Sexual Orientation Not on file Plan of Treatment Health Maintenance Due Date Last Done Comments Colorectal Cancer Screening Colonoscopy (10 Years) 1959 Hepatitis C 1977 Mammogram Screening 1999 Zoster Vaccines (1 of 2) 2009 DTaP, Tdap and Td Vaccines ( 2 - Td or Tdap) 02/03/2022 02/04/2012 Dexa Scan (General) 2024 Pneumococcal Vaccine: 65+ Ye ars (1 of 1 - PCV) 2024 COVID-19 Vaccine (2023-2 5 season) 2024 RSV Immunization or 60+ Years (1 - 1-dose 75+ series) 2034 Meningococcal B Vaccine Aged Out No l onger eligible based on patient's age to complete this topic Meningococcal Vaccine Aged Out No eduard duy eligible based on patient's age to complete this topic Pneumococcal Vaccine: Pediat rics (0 to 5 Years) and At-Risk Patients (6 to 64 Years) Aged Out No longer eligi ble based on patient's age to complete this topic RSV Immunizations Under 20 Months Aged Out No longer eligible based on patient's age to complete this topic
== END 2024-11-11 15:12 | disposition home or self-care (01) ==
LOC: ANHGOSHLAB 15:12
PROVIDERS: PCP Internal Medicine; Visit Provider Nurse Practitioner
DX: R25.1 Tremor, unspecified (principal); F41.9 Anxiety disorder, unspecified; F32.9 Major depressive disorder, single episode, unspecified
CPT/HCPCS: 36415

== ENCOUNTER 2025-02-16 12:39 | Outpatient (CLI) | payer MEDICARE, SELFPAY ==
--- NOTE | ~2025-02-16 | US_ITS ---
EXAM: RENAL ULTRASOUND HISTORY: R94.4 - Abnormal results of kidney function studies COMPARISON: None FINDINGS: RIGHT KIDNEY: 8.7 x 4.1 x 3.9 cm. The parenchyma of the right kidney is unremarkable in echogenicity and caliber. No hydronephrosis or renal calculi. LEFT KIDNEY: 9.2 x 3.7 x 4.0 cm No hydronephrosis or renal calculi. The parenchyma of the left kidney is unremarkable in echogenicity and caliber. BLADDER: The bladder is distended. Bilateral ureteral jets are identified. IMPRESSION: No hydronephrosis or renal calculi. Reviewed, dictated and finalized at location A.
--- OUTSIDE RECORDS SUMMARY | 2025-02-16 12:44 | XMS_ITS | Clinical Summary ---
Author Organization [facility] Address [address] [facility] [place] [address] Care Team Providers Care Spinning Room Worker Name Role Phone Maryann Ahn APRN-[facility] Primary Care Provider [phone] -[phone] Source Comments [facility],non-owned Affiliates and Associated Physician Practices is amultiple site organization consisting of ambulatory clinics and hospital sitesin [place], [place], [place] and [place]. This disclosure is being madepursuant to the Care Everywhere program and may not contain all information available regarding this patient. Last updated 18.[facility] [employer] Allergies Active Allergy Reactions Criticality Noted Date Comments Sulfa Drugs Urticaria Medium 06/02/2013 Medications * Be aware that medications may not be up to date on this document. Alwaysverify current medications with the patient. escitalopram (Lexapro) 20 MG tablet Take 1 (one) tablet by mouth once daily 11/10/2024 Active gabapentin (Neurontin) 100 MG capsule 1 (one) capsule 12/10/2024 Active gabapentin (Neurontin) 300 MG capsule Take 1 (one) capsule by mouth 2 times daily 12/10/2024 Active buPROPion XL 24hr (Wellbutrin-XL) 150 MG tablet Take 1 (one) tablet by mouth every morning 11/11/2024 Active vitamin D3 (Cholecalcifero l) 25 MCG (1000 UNITS) tablet Take 5 (five) tablets by mouth once daily Active primidone (Mysoline) 50 MG tabletIndicatio ns:Tremor, essential Take 1 (one) tablet by mouth at bedtime 90 tablet 3 02/01/2025 Active Active Problems No known active problems Encounters Date Type Department Care Team Description 02/01/2025 9:00 AM CDT Office Visit [facility] - Neurology [address] [place] [phone] Safia Mayberry APRN-INSTALLMENT LOAN COLLECTOR Tremor, essential (Primary Dx); Pre-op evaluation 02/01/2025 Travel from Last 3 Months Social History Tobacco Use Types Packs/Day Years Used Date Smoking Tobacco: Never Assessed Comments Unknown Sex and Gender Information Value Date Recorded Sex Assigned at Not on file Legal Sex Female 10:42 AM CDT Gender Identity Not on file Sexual Orientation Not on file Last Filed Vital Signs Vital Sign Reading Time Taken Comments Blood Pressure 119/73 02/01/2025 8:52 AM CDT Pulse 62 02/01/2025 8:52 AM CDT Temperature - - Respiratory Rate - - Oxygen Saturation 97% 02/01/2025 8:52 AM CDT Inhaled Oxygen Concentration - - Weight 69.9 kg (154 lb) 02/01/2025 8:52 AM CDT Height - - Body Mass Index - - Plan of Treatment Upcoming Encounters Date Type Department Care Team (Late st Contact Info) Description 02/18/2025 9:00 AM CDT Procedure visit [facility] - Neurology [address] [place] [phone] Ludwig Clark MD [address] [place] [address] [place] [address] Health Maintenance Due Date Last Done Comments BONE DENSITY TESTING 1960 COLOGUARD (AGES 45-75) - COL ON CA SCREENING 1959 COLON MONITORING 1959 COLONOSCOPY - COLON CA SCREENING 1959 CT COLONOGRAPHY - COLON CA SCREENING 1959 Colorectal Cancer Screening 1959 FIT - COLON CA SCREENING 1959 FLEX SIG - COLON CA SCREENING 1959 HIV SCREENING 1974 HEPATITIS C SCREENING 04/04/1977 DTAP/TDAP/TD VACCINES (1 - Tdap) 1978 PAP SMEAR 1980 PNEUMOCOCCAL VACCINE 50+ (1 of 1 - PCV) 2009 ZOSTER VACCINE (1 of 2) 2009 MAMMOGRAM 04/03/2018 04/03/2016, 03/15/2015, 06/05/2013 LIPID TESTING 10/09/2022 10/09/2017 COVID-19 VACCINE (1 - 2023-2 5 season) 2024 DEPRESSION SCREENING 08/12/2024 INFLUENZA VACCINE (#1) 2025 Respiratory Syncytial Virus (RSV) Vaccine Pt: or over 60 yrs (1 - 1-dose 75+ series) 2034 HEPATITIS B VACCINE Aged Out No longe r eligible based on patient's age to complete this topic HIB VACCINE Aged Out No longer eligi ble based on patient's age to complete this topic HPV VACCINE Aged Out No longer eligi ble based on patient's age to complete this topic MENINGOCOCCAL (Group B) VACCINE SHARED DECISION-MAKING Aged Out No longer eligible based on patient's age to complete this topic MENINGOCOCCAL GROUPS A/C/Y/W VACCINE Aged Out No longer eligible b ased on patient's age to complete this topic Insurance AET[employer] MEDICARE ADV Care Teams Spinning Room Worker Relationship Specialty Start Date End Date Maryann Ahn APRN-INSTALLMENT LOAN COLLECTOR [address] [place] [address] PCP - General Nurse Practitioner 12/07/24
--- OUTSIDE RECORDS SUMMARY | 2025-02-16 12:44 | XMS_ITS | Clinical Summary ---
Author Organization [facility] Address [address] [place] [id number] Care Team Providers Care Out Of Town Collection Clerk Name Role Phone Unavailable Primary Care Provider Unavailabl e Social History Tobacco Use Types Packs/Day Years Used Date Smoking Tobacco: Never Assessed Comments Unknown Sex and Gender Information Value Date Recorded Sex Assigned at Not on file Legal Sex Female 1:05 PM SCRAP PREPARATION SUPERVISOR Gender Identity Not on file Sexual Orientation Not on file Plan of Treatment Health Maintenance Due Date Last Done Comments Colorectal Cancer Screening Colonoscopy (10 Years) 1959 Hepatitis C 1977 Mammogram Screening 1999 Pneumococcal Vaccine: 50+ Ye ars (1 of 1 - PCV) 2009 Zoster Vaccines (1 of 2) 2009 DTaP, Tdap and Td Vaccines ( 2 - Td or Tdap) 02/03/2022 02/04/2012 Dexa Scan (General) 2024 COVID-19 Vaccine ( - 2023-2 5 season) 2024 RSV Immunization or 60+ [...]
--- OUTSIDE RECORDS SUMMARY | 2025-02-16 12:44 | XMS_ITS | Clinical Summary ---
Author Organization [facility] Address [address] [place] [address] Care Team Providers Care Police Aide Name Role Phone No, Physician Unavailable Alfredo Healy DO Primary Care Provider [phone]- [phone] Allergies Active Allergy Reactions Criticality Noted Date [...] (01/15/2022): Added automatically from request for surgery [id number] UTI (urinary tract infection) 03/03/2019 Acute pain [...] (03/17/2020): Added automatically from request for surgery [id number] Immunizations Immunization Administration Dates Next Due Tdap [...] often do you attend chur ch or sikh services? More than 4 times per year 01/18/2022 Do you belong to any clubs o r organizations such as scientologist groups, unions, fraternal or athletic groups, or [...] place to sleep or slept in a care home (including now)? No 01/18/2022 Comments No Sex [...] 9:04 AM CDT Height 162.6 cm (5' 4) 01/14/2022 9:04 AM CDT Body Mass Index [...] - season) 04/12/202406/2021, 10/25/2020 Influenza Vaccine (#1) 2025 Hepatitis C Screening Completed 01/14/2022 Medical Devices Implanted Type Area Cd Technician Device Identifier Shelf Expiration Date Model / Serial / Lot Synthes Carbon Timo Implanted:Qty: 1 on 03/03/2019 by Marco Frye MD at [facility] Left: Leg Synthes I 394.88 / / Description:IMPLANT TIMES AR E APPROXIMATED 11 X 450 Carbon Timo Implanted:Qty: 1 on 03/03/2019 by Marco Frye MD at [facility] Left: Leg Synthes I 66071 / / Description:IMPLANT TIMES AR E APPROXIMATED 11 X 400 Carbon Timo Implanted:Qty: 1 on 03/03/2019 by Marco Frye MD at [facility] Left: Leg Synthes I 31450 / / Description:IMPLANT TIMES AR E APPROXIMATED 11 X 200 Carbon Timo Implanted:Qty: 1 on 03/03/2019 by Marco Frye MD at [facility] Left: Leg Synthes I 70345 / / Description:IMPLANT TIMES AR E APPROXIMATED Large Combo Clamp Implanted:Qty: 7 on 03/03/2019 by Marco Frye MD at [facility] Left: Leg Synthes I [id number] / / Description:IMPLANT TIMES AR E APPROXIMATED Synthes 294.55 Schanz 5mm 170mm 50mm Blunt Trocar Point Xlong Screw External - [id number] Implanted:Qty: 2 on 03/03/2019 by Marco Frye MD at [facility] Left: Leg Synthes I 294.55 / / Description:IMPLANT TIMES AR E APPROXIMATED Trans Calc Pin Implanted:Qty: 1 on 03/03/2019 by Marco Frye MD at [facility] Left: Leg Synthes I [id number] / / Description:IMPLANT TIMES AR E APPROXIMATED Protective Cap 5.0 Implanted:Qty: 1 on 03/03/2019 by Marco Frye MD at [facility] Left: Leg Synthes I [id number] / / Description:IMPLANT TIMES AR E APPROXIMATED Synthes 204.830 3.5mm 6mm 30mm 2.5mm Self Tap Small Hexagonal Socket Low Profile - [id number] Implanted:Qty: 1 on 03/10/2019 by Marco Frye MD at [facility] Synthes I 204.830 / / Synthes 204.828 3.5mm 6mm 28mm 2.5mm Self Tap Small Hexagonal Socket Low Profile - [id number] Implanted:Qty: 1 on 03/10/2019 by Marco Frye MD at [facility] Synthes I 204.828 / / Synthes 204.826 3.5mm 6mm 26mm 2.5mm Self Tap Small Hexagonal Socket Low Profile - [id number] Implanted:Qty: 1 on 03/10/2019 by Marco Frye MD at [facility] Synthes I 204.826 / / Synthes 204.842 3.5mm 6mm 42mm 2.5mm Self Tap Small Hexagonal Socket Low Profile - [id number] Implanted:Qty: 2 on 03/10/2019 by Marco Frye MD at [facility] Synthes I 204.842 / / Synthes 247.370 Lcp Pro-Serg 97mm 12 Hole Adaption Low Profile Cut To Length Plate - [id number] Implanted:Qty: 1 on 03/10/2019 by Marco Frye MD at [facility] Synthes I 247.370 / / Synthes 202.878 2.7mm 5mm 18mm 2.5mm Self Tap Stardrive Cortical T8 Screw Bone - [id number] Implanted:Qty: 1 on 03/10/2019 by Marco Frye MD at [facility] Synthes I 202.878 / / Synthes 202.880 2.7mm 5mm 20mm 2.5mm Self Tap Stardrive Cortical T8 Screw Bone - [id number] Implanted:Qty: 1 on 03/10/2019 by Marco Frye MD at [facility] Synthes I 202.880 / / Synthes 202.876 2.7mm 5mm 16mm 2.5mm Self Tap Stardrive Cortical T8 Screw Bone - [id number] Implanted:Qty: 2 on 03/10/2019 by Marco Frye MD at [facility] Synthes I 202.876 / / Synthes 202.888 2.7mm 5mm 28mm 2.5mm Self Tap Stardrive Cortical T8 Screw Bone - [id number] Implanted:Qty: 1 on 03/10/2019 by Marco Frye MD at [facility] Synthes I 202.888 / / Synthes 202.886 2.7mm 5mm 26mm 2.5mm Self Tap Stardrive Cortical T8 Screw Bone - [id number] Implanted:Qty: 1 on 03/10/2019 by Marco Frye MD at [facility] Synthes I 202.886 / / Synthes 241.361 Lcp 12mm [id number] .7mm 6 Hole Collar 1/3 Tubular Plate Bone - [id number] Implanted:Qty: 1 on 03/10/2019 by Marco Frye MD at [facility] Synthes I 241.361 / / Synthes 204.875 3.5mm 6mm 75mm 2.5mm Self Tap Small Hexagonal Socket Low Profile - [id number] Implanted:Qty: 1 on 03/10/2019 by Marco Frye MD at [facility] Synthes I 204.875 / / Synthes 204.870 3.5mm 6mm 70mm 2.5mm Self Tap Small Hexagonal Socket Low Profile - [id number] Implanted:Qty: 1 on 03/10/2019 by Marco Frye MD at [facility] Synthes I 204.870 / / Synthes 204.840 3.5mm 6mm 40mm 2.5mm Self Tap Small Hexagonal Socket Low Profile - [id number] Implanted:Qty: 1 on 03/10/2019 by Marco Frye MD at [facility] Synthes I 204.840 / / Synthes 204.836 3.5mm 6mm 36mm 2.5mm Self Tap Small Hexagonal Socket Low Profile - [id number] Implanted:Qty: 1 on 03/10/2019 by Marco Frye MD at [facility] Synthes I 204.836 / / Synthes 241.151 Lcp Combi 74k39p6.5mm 3 Hole Head 5 Hole Shaft Right Angle T - [id number] Implanted:Qty: 1 on 03/10/2019 by Marco Frye MD at [facility] Synthes I 241.151 / / Depuy Mitek [id number] Gii Quickanchor Plus Ethibond 2 Cp-2 [place] Suture - S0 - [id number] Implanted:Qty: 1 on 03/18/2020 by Arnaud Iraheta MD at [facility] Right: Elbow Depuy Mitek 07/11/2024 [id number] / 0 / [id number] Ac[employer] Inc 30-0256 3.5mm 10mm Hexalobe Screw Bone Titanium Nonsterile Small Fragment - [id number] Implanted:Qty: 3 on 03/18/2020 by Diane Huff MD at [facility] Left: Radius [employer] 30-0256 / / Ac[employer] 70-0370 Acu-Loc 2 65mm Reduce Profile Window Radius Left Distal Volar - [id number] Implanted:Qty: 1 on 03/18/2020 by Diane Huff MD at [facility] Left: Radius [employer] 70-0370 / / [employer] Co-N2320 2.3mm 20mm Nontoggle Hexagonal Cortical Screw Bone Titanium - [id number] Implanted:Qty: 1 on 03/18/2020 by Diane Huff MD at [facility] Left: Radius [employer] CO-N2320 / / [employer] Co-T2316 2.3mm 16mm Lock Hexagonal Cortical Full Thread Screw Bone - [id number] Implanted:Qty: 4 on 03/18/2020 by Diane Huff MD at [facility] Left: Radius [employer] CO-T2316 / / [employer] Inc 30-0258 3.5mm 14mm Hexalobe Screw Bone Titanium Nonsterile Small Fragment - [id number] Implanted:Qty: 1 on 03/18/2020 by Diane Huff MD at [facility] Left: Radius [employer] 30-0258 / / Synthes 2.7mm 5mm 18mm 2.5mm Self Tap Stardrive Cortical T8 Screw Bone 202.878 - [id number] Implanted:Qty: 2 on 01/15/2022 by Arnaud Iraheta MD at [facility] Right: Ankle Synthes I 202.878 / / Synthes Lcp Combi 99mm 5 Hole Fibula Right Distal Lateral Contour Plate 02.112.140 - [id number] Implanted:Qty: 1 on 01/15/2022 by Arnaud Iraheta MD at [facility] Right: Ankle Synthes I 02.112.140 / / Synthes 2.7mm 2.1mm 14mm Self Tap Lock Stardrive Thread Head Profile T8 202.214 - [id number] Implanted:Qty: 3 on 01/15/2022 by Arnaud Iraheta MD at [facility] Right: Ankle Synthes I 202.214 / / Synthes 2.7mm 2.1mm 16mm Self Tap Lock Stardrive Thread Head Profile T8 202.216 - [id number] Implanted:Qty: 2 on 01/15/2022 by Arnaud Iraheta MD at [facility] Right: Ankle Synthes I 202.216 / / Synthes 3.5mm 6mm 14mm 2.5mm Self Tap Small Hexagonal Socket Low Profile 204.814 - [id number] Implanted:Qty: 1 on 01/15/2022 by Arnaud Iraheta MD at [facility] Right: Ankle Synthes I 204.814 / / Synthes 3.5mm 6mm 12mm 2.5mm Self Tap Small Hexagonal Socket Low Profile 204.812 - [id number] Implanted:Qty: 2 on 01/15/2022 by Arnaud Iraheta MD at [facility] Right: Ankle Synthes I 204.812 / / Synthes 3.5mm 6mm 65mm 2.5mm Self Tap Small Hexagonal Socket Low Profile 204.865 - [id number] Implanted:Qty: 1 on 01/15/2022 by Arnaud Iraheta MD at [facility] Right: Ankle Synthes I 204.865 / / Explanted Type Area Cd Technician Device Identifier Shelf Expiration Date Model / Serial / Lot Synthes 204.842 3.5mm 6mm 42mm 2.5mm Self Tap Small Hexagonal Socket Low Profile - [id number] Explanted:Qty: 1 on 03/10/2019 at [facility] Synthes I 204.842 / / Procedures Procedure Name Priority Date/Time Associated Diagnosis Comments HEPATITIS C ANTIBODY Routine 01/14/2022 10:11 PM CDT from Last 3 Months or Most Recently Relevant to Health Maintenance Results * Hepatitis C antibody (01/14/2022 10:11 PM CDT) Hep C Ab Nonreactive Nonreactive [facility] Comment:Antibodies to HCV no t detected. Does NOT exclude the possibility of recent exposure to HCV. Blood 01/14/2022 10:1 1 PM CDT 01/14/2022 11:24 PM CDT Dudley Siddiqui MD LAB MICROBIOLOGY - GENER AL ORDERABLES Edited Result - Final [facility] Department [place] [address] from Last 3 Months or Most Recently Relevant to Health Maintenance Insurance CIGNA CIGNA CIGNA Advance Directives For more information, please contact: [phone] * Full Code (Latest Code Status on File) Date Activated Date Inactivated Comments 01/15/2022 8:54 PM 01/17/2022 3:15 PM * Full Code Date Activated Date Inactivated Comments 01/14/2022 5:46 PM 01/15/2022 8:54 PM * Full Code Date Activated Date Inactivated Comments 03/17/2020 11:22 PM 03/19/2020 7:29 PM * Full Code Date Activated Date Inactivated Comments 03/03/2019 11:09 AM 03/05/2019 7:49 PM Care Teams Police Aide Relationship Specialty Start Date End Date Alfredo Healy DO PCP - General 05/23/20 No, Physician 03/19/20
--- OUTSIDE RECORDS SUMMARY | 2025-02-16 12:44 | XMS_ITS | Referral Summary ---
Author Organization [facility] Address [address] [place] [address] Care Team Providers Care Backpackers Manager Name Role Phone No, Physician Unavailable Alfredo Healy DO Primary Care Provider +1- [phone] Allergies Active Allergy Reactions Criticality Noted Date [...] (01/15/2022): Added automatically from request for surgery [id number] UTI (urinary tract infection) 03/03/2019 Acute pain [...] (03/17/2020): Added automatically from request for surgery [id number] Immunizations Immunization Administration Dates Next Due Tdap [...] often do you attend chur ch or samaritan services? More than 4 times per year 01/18/2022 Do you belong to any clubs o r organizations such as congregation groups, unions, fraternal or athletic groups, or [...] place to sleep or slept in a skilled nursing (including now)? No 01/18/2022 Comments No Sex [...] on file Medical Devices Implanted Type Area Dovetail Machine Operator Device Identifier Shelf Expiration Date Model / Serial / Lot Synthes Carbon Timo Implanted:Qty: 1 on 03/03/2019 by Marco Frye MD at [facility] Left: Leg Synthes I 394.88 / / Description:IMPLANT TIMES AR E APPROXIMATED 11 X 450 Carbon Timo Implanted:Qty: 1 on 03/03/2019 by Marco Frye MD at [facility] Left: Leg Synthes I 97644 / / Description:IMPLANT TIMES AR E APPROXIMATED 11 X 400 Carbon Timo Implanted:Qty: 1 on 03/03/2019 by Marco Frye MD at [facility] Left: Leg Synthes I 84840 / / Description:IMPLANT TIMES AR E APPROXIMATED 11 X 200 Carbon Timo Implanted:Qty: 1 on 03/03/2019 by Marco Frye MD at [facility] Left: Leg Synthes I 45386 / / Description:IMPLANT TIMES AR E APPROXIMATED Large Combo Clamp Implanted:Qty: 7 on 03/03/2019 by Marco Frye MD at [facility] Left: Leg Synthes I 911220 / / Description:IMPLANT TIMES AR E APPROXIMATED Synthes 294.55 Schanz 5mm 170mm 50mm Blunt Trocar Point Xlong Screw External - [id number] Implanted:Qty: 2 on 03/03/2019 by Marco Frye MD at [facility] Left: Leg Synthes I 294.55 / / Description:IMPLANT TIMES AR E APPROXIMATED Trans Calc Pin Implanted:Qty: 1 on 03/03/2019 by Marco Frye MD at [facility] Left: Leg Synthes I 279808 / / Description:IMPLANT TIMES AR E APPROXIMATED Protective Cap 5.0 Implanted:Qty: 1 on 03/03/2019 by Marco Frye MD at [facility] Left: Leg Synthes I 442123 / / Description:IMPLANT TIMES AR E APPROXIMATED Synthes 204.830 3.5mm 6mm 30mm 2.5mm Self Tap Small Hexagonal Socket Low Profile - [id number] Implanted:Qty: 1 on 03/10/2019 by Marco Frye MD at [facility] Synthes I 204.830 / / Synthes 204.828 3.5mm 6mm 28mm 2.5mm Self Tap Small Hexagonal Socket Low Profile - [id number] Implanted:Qty: 1 on 03/10/2019 by Marco Frye MD at [facility] Synthes I 204.828 / / Synthes 204.826 3.5mm 6mm 26mm 2.5mm Self Tap Small Hexagonal Socket Low Profile - [id number] Implanted:Qty: 1 on 03/10/2019 by Marco Frye MD at [facility] Synthes I 204.826 / / Synthes 204.842 3.5mm 6mm 42mm 2.5mm Self Tap Small Hexagonal Socket Low Profile - [id number] Implanted:Qty: 2 on 03/10/2019 by Marco Frye MD at [facility] Synthes I 204.842 / / Synthes 247.370 Lcp Pro-Serg 97mm 12 Hole Adaption Low Profile Cut To Length Plate - [id number] Implanted:Qty: 1 on 03/10/2019 by Macro Frye MD at [facility] Synthes I 247.370 / / Synthes 202.878 2.7mm 5mm 18mm 2.5mm Self Tap Stardrive Cortical T8 Screw Bone - [id number] Implanted:Qty: 1 on 03/10/2019 by Marco Frye MD at [facility] Synthes I 202.878 / / Synthes 202.880 2.7mm 5mm 20mm 2.5mm Self Tap Stardrive Cortical T8 Screw Bone - [id number] Implanted:Qty: 1 on 03/10/2019 by Marco Frye MD at [facility] Synthes I 202.880 / / Synthes 202.876 2.7mm 5mm 16mm 2.5mm Self Tap Stardrive Cortical T8 Screw Bone - [id number] Implanted:Qty: 2 on 03/10/2019 by Marco Frye MD at [facility] Synthes I 202.876 / / Synthes 202.888 2.7mm 5mm 28mm 2.5mm Self Tap Stardrive Cortical T8 Screw Bone - [id number] Implanted:Qty: 1 on 03/10/2019 by Marco Frye MD at [facility] Synthes I 202.888 / / Synthes 202.886 2.7mm 5mm 26mm 2.5mm Self Tap Stardrive Cortical T8 Screw Bone - [id number] Implanted:Qty: 1 on 03/10/2019 by Marco Frye MD at [facility] Synthes I 202.886 / / Synthes 241.361 Lcp 12mm [id number] .7mm 6 Hole Collar 1/3 Tubular Plate Bone - [id number] Implanted:Qty: 1 on 03/10/2019 by Marco Frye MD at [facility] Synthes I 241.361 / / Synthes 204.875 3.5mm 6mm 75mm 2.5mm Self Tap Small Hexagonal Socket Low Profile - [id number] Implanted:Qty: 1 on 03/10/2019 by Marco Frye MD at [facility] Synthes I 204.875 / / Synthes 204.870 3.5mm 6mm 70mm 2.5mm Self Tap Small Hexagonal Socket Low Profile - [id number] Implanted:Qty: 1 on 03/10/2019 by Marco Frye MD at [facility] Synthes I 204.870 / / Synthes 204.840 3.5mm 6mm 40mm 2.5mm Self Tap Small Hexagonal Socket Low Profile - [id number] Implanted:Qty: 1 on 03/10/2019 by Marco Frye MD at [facility] Synthes I 204.840 / / Synthes 204.836 3.5mm 6mm 36mm 2.5mm Self Tap Small Hexagonal Socket Low Profile - [id number] Implanted:Qty: 1 on 03/10/2019 by Marco Frye MD at [facility] Synthes I 204.836 / / Synthes 241.151 Lcp Combi 44i89v3.5mm 3 Hole Head 5 Hole Shaft Right Angle T - [id number] Implanted:Qty: 1 on 03/10/2019 by Marco Frye MD at [facility] Synthes I 241.151 / / Depuy Mitek [id number] Gii Quickanchor Plus Ethibond 2 Cp-2 [place] Suture - S0 - [id number] Implanted:Qty: 1 on 03/18/2020 by Arnaud Iraheta MD at [facility] Right: Elbow Depuy Mitek 07/11/2024 202552 / 0 / [id number] Ac[employer] Inc 30-0256 3.5mm 10mm Hexalobe Screw Bone Titanium Nonsterile Small Fragment - [id number] Implanted:Qty: 3 on 03/18/2020 by Diane Huff MD at [facility] Left: Radius [employer] 30-0256 / / [employer] 70-0370 Acu-Loc 2 65mm Reduce Profile Window Radius Left Distal Volar - [id number] Implanted:Qty: 1 on 03/18/2020 by Diane Huff MD at [facility] Left: Radius [employer] 70-0370 / / [employer] Co-N2320 2.3mm 20mm Nontoggle Hexagonal Cortical Screw Bone Titanium - [id number] Implanted:Qty: 1 on 03/18/2020 by Diane Huff MD at [facility] Left: Radius [employer] CO-N2320 / / [employer] Co-T2316 2.3mm 16mm Lock Hexagonal Cortical Full Thread Screw Bone - [id number] Implanted:Qty: 4 on 03/18/2020 by Diane Huff MD at [facility] Left: Radius [employer] CO-T2316 / / [employer] Inc 30-0258 3.5mm 14mm Hexalobe Screw Bone Titanium Nonsterile Small Fragment - [id number] Implanted:Qty: 1 on 03/18/2020 by Diaen Huff MD at [facility] Left: Radius [employer] 30-0258 / / Synthes 2.7mm 5mm 18mm 2.5mm Self Tap Stardrive Cortical T8 Screw Bone 202.878 - [id number] Implanted:Qty: 2 on 01/15/2022 by Arnaud Iraheta MD at [facility] Right: Ankle Synthes I 202.878 / / Synthes Lcp Combi 99mm 5 Hole Fibula Right Distal Lateral Contour Plate 02140 - [id number] Implanted:Qty: 1 on 01/15/2022 by Arnaud Iraheta MD at [facility] Right: Ankle Synthes I 02112.140 / / Synthes 2.7mm 2.1mm 14mm Self Tap Lock Stardrive Thread Head Profile T8 202.214 - [id number] Implanted:Qty: 3 on 01/15/2022 by Arnaud Iraheta MD at [facility] Right: Ankle Synthes I 202.214 / / Synthes 2.7mm 2.1mm 16mm Self Tap Lock Stardrive Thread Head Profile T8 202.216 - [id number] Implanted:Qty: 2 on 01/15/2022 by Arnaud Iraheta MD at [facility] Right: Ankle Synthes I 202.216 / / Synthes 3.5mm 6mm 14mm 2.5mm Self Tap Small Hexagonal Socket Low Profile 204.814 - [id number] Implanted:Qty: 1 on 01/15/2022 by Arnaud Iraheta MD at [facility] Right: Ankle Synthes I 204.814 / / Synthes 3.5mm 6mm 12mm 2.5mm Self Tap Small Hexagonal Socket Low Profile 204.812 - [id number] Implanted:Qty: 2 on 01/15/2022 by Arnaud Iraheta MD at [facility] Right: Ankle Synthes I 204.812 / / Synthes 3.5mm 6mm 65mm 2.5mm Self Tap Small Hexagonal Socket Low Profile 204.865 - [id number] Implanted:Qty: 1 on 01/15/2022 by Arnaud Iraheta MD at [facility] Right: Ankle Synthes I 204.865 / / Explanted Type Area Dovetail Machine Operator Device Identifier Shelf Expiration Date Model / Serial / Lot Synthes 204.842 3.5mm 6mm 42mm 2.5mm Self Tap Small Hexagonal Socket Low Profile - [id number] Explanted:Qty: 1 on 03/10/2019 at [facility] Synthes I 204.842 / / Procedures Procedure [...] AL ORDERABLES Edited Result - Final [facility] [place] [address] from Last 3 Months or Most Recently Relevant to Health Maintenance Insurance CIGNA CIGNA CIGNA Advance Directives For more information, please contact: [phone] * Full Code (Latest Code Status on File) Date Activated Date Inactivated Comments 01/15/2022 8:54 PM 01/17/2022 3:15 PM * Full Code Date Activated Date Inactivated Comments 01/14/2022 5:46 PM 01/15/2022 8:54 PM * Full Code Date Activated Date Inactivated Comments 03/17/2020 11:22 PM 03/19/2020 7:29 PM * Full Code Date Activated Date Inactivated Comments 03/03/2019 11:09 AM 03/05/2019 7:49 PM Care Teams Backpackers Manager Relationship Specialty Start Date End Date Alfredo Healy DO PCP - General 05/23/20 No, Physician 03/19/20
--- OUTSIDE RECORDS SUMMARY | 2025-02-16 12:44 | XMS_ITS ---
Author Organization [facility] Address [address] [place] [address] Care Team Providers Care Cake Press Operator Helper Name Role Phone No, Physician Unavailable Alfredo Healy DO Primary Care Provider +1- [phone] Active Problems Problem Noted Date Diagnosed Date [...] (01/15/2022): Added automatically from request for surgery [id number] UTI (urinary tract infection) 03/03/2019 Acute pain [...] (03/17/2020): Added automatically from request for surgery [id number]
== END 2025-02-16 12:40 | disposition home or self-care (01) ==
PROVIDERS: PCP Internal Medicine; Visit Provider Nurse Practitioner
DX: R94.4 Abnormal results of kidney function studies (principal)
CPT/HCPCS: 76775

== ENCOUNTER 2025-02-25 02:19 | Day surgery (SDC) | payer MEDICARE, SELFPAY ==
[2025-02-09 12:19] VITALS: BMI 25.0
--- OUTSIDE RECORDS SUMMARY | 2025-02-25 02:21 | XMS_ITS | Clinical Summary ---
Author Organization [facility] Address [address] [place] [address] Care Team Providers Care Public Relations Specialist Name Role Phone No, Physician Unavailable Alfredo Healy DO Primary Care Provider +1- [phone] Allergies Active Allergy Reactions Criticality Noted Date [...] (01/15/2022): Added automatically from request for surgery [id number] UTI (urinary tract infection) 03/03/2019 Acute pain [...] (03/17/2020): Added automatically from request for surgery [id number] Immunizations Immunization Administration Dates Next Due Tdap [...] often do you attend chur ch or episcopal services? More than 4 times per year 01/18/2022 Do you belong to any clubs o r organizations such as zoroastrian groups, unions, fraternal or athletic groups, or [...] place to sleep or slept in a intermediate (including now)? No 01/18/2022 Comments No Sex [...] Completed 01/14/2022 Medical Devices Implanted Type Area Director Of Collections Device Identifier Shelf Expiration Date Model / Serial / Lot Synthes Carbon Timo Implanted:Qty: 1 on 03/03/2019 by Marco Frye MD at [facility] Left: Leg Synthes I 394.88 / / Description:IMPLANT TIMES AR E APPROXIMATED 11 X 450 Carbon Timo Implanted:Qty: 1 on 03/03/2019 by Marco Frye MD at [facility] Left: Leg Synthes I 41459 / / Description:IMPLANT TIMES AR E APPROXIMATED 11 X 400 Carbon Timo Implanted:Qty: 1 on 03/03/2019 by Marco Frye MD at [facility] Left: Leg Synthes I 70213 / / Description:IMPLANT TIMES AR E APPROXIMATED 11 X 200 Carbon Timo Implanted:Qty: 1 on 03/03/2019 by Marco Frye MD at [facility] Left: Leg Synthes I 77146 / / Description:IMPLANT TIMES AR E APPROXIMATED Large Combo Clamp Implanted:Qty: 7 on 03/03/2019 by Marco Frye MD at [facility] Left: Leg Synthes I [id number] / / Description:IMPLANT TIMES AR E APPROXIMATED Synthes 294.55 Schanz 5mm 170mm 50mm Blunt Trocar Point Xlong Screw External - [id number] Implanted:Qty: 2 on 03/03/2019 by Marco Frye MD at [facility] Left: Leg Synthes I 294.55 / / Description:IMPLANT TIMES AR E APPROXIMATED Trans Calc Pin Implanted:Qty: 1 on 03/03/2019 by Marco Frye MD at [facility] Left: Leg Synthes I 367646 / / Description:IMPLANT TIMES AR E APPROXIMATED Protective Cap 5.0 Implanted:Qty: 1 on 03/03/2019 by Marco Frye MD at [facility] Left: Leg Synthes I [id number] / / Description:IMPLANT TIMES AR E APPROXIMATED Synthes 204.830 3.5mm 6mm 30mm 2.5mm Self Tap Small Hexagonal Socket Low Profile - [id number] Implanted:Qty: 1 on 03/10/2019 by Marco Frye MD at [facility] Synthes I 204.830 / / Synthes 204.828 3.5mm 6mm 28mm 2.5mm Self Tap Small Hexagonal Socket Low Profile - [id number] Implanted:Qty: 1 on 03/10/2019 by Marco Frye MD at [facility] Synthes I 204.828 / / Synthes 204.826 3.5mm 6mm 26mm 2.5mm Self Tap Small Hexagonal Socket Low Profile - [id number] Implanted:Qty: 1 on 03/10/2019 by Marco Frye MD at [facility] Synthes I 204.826 / / Synthes 204.842 3.5mm 6mm 42mm 2.5mm Self Tap Small Hexagonal Socket Low Profile - [id number] Implanted:Qty: 2 on 03/10/2019 by Marco Frye MD at [facility] Synthes I 204.842 / / Synthes 247.370 Lcp Pro-Serg 97mm 12 Hole Adaption Low Profile Cut To Length Plate - [id number] Implanted:Qty: 1 on 03/10/2019 by Marco Frye MD at [facility] Synthes I 247.370 / / Synthes 202.878 2.7mm 5mm 18mm 2.5mm Self Tap Stardrive Cortical T8 Screw Bone - [id number] Implanted:Qty: 1 on 03/10/2019 by Marco Frye MD at [facility] Synthes I 202.878 / / Synthes 202.880 2.7mm 5mm 20mm 2.5mm Self Tap Stardrive Cortical T8 Screw Bone - [id number] Implanted:Qty: 1 on 03/10/2019 by Marco Frye MD at [facility] Synthes I 202.880 / / Synthes 202.876 2.7mm 5mm 16mm 2.5mm Self Tap Stardrive Cortical T8 Screw Bone - [id number] Implanted:Qty: 2 on 03/10/2019 by Marco Frye MD at [facility] Synthes I 202.876 / / Synthes 202.888 2.7mm 5mm 28mm 2.5mm Self Tap Stardrive Cortical T8 Screw Bone - [id number] Implanted:Qty: 1 on 03/10/2019 by Marco Frye MD at [facility] Synthes I 202.888 / / Synthes 202.886 2.7mm 5mm 26mm 2.5mm Self Tap Stardrive Cortical T8 Screw Bone - [id number] Implanted:Qty: 1 on 03/10/2019 by Marco Frye MD at [facility] Synthes I 202.886 / / Synthes 241.361 Lcp 12mm 80q6k9tf .7mm 6 Hole Collar 1/3 Tubular Plate Bone - [id number] Implanted:Qty: 1 on 03/10/2019 by Marco Frye MD at [facility] Synthes I 241.361 / / Synthes 204.875 3.5mm 6mm 75mm 2.5mm Self Tap Small Hexagonal Socket Low Profile - [id number] Implanted:Qty: 1 on 03/10/2019 by Marco Frye MD at [facility] Synthes I 204.875 / / Synthes 204.870 3.5mm 6mm 70mm 2.5mm Self Tap Small Hexagonal Socket Low Profile - [id number] Implanted:Qty: 1 on 03/10/2019 by Marco Frye MD at [facility] Synthes I 204.870 / / Synthes 204.840 3.5mm 6mm 40mm 2.5mm Self Tap Small Hexagonal Socket Low Profile - [id number] Implanted:Qty: 1 on 03/10/2019 by Marco Frye MD at [facility] Synthes I 204.840 / / Synthes 204.836 3.5mm 6mm 36mm 2.5mm Self Tap Small Hexagonal Socket Low Profile - [id number] Implanted:Qty: 1 on 03/10/2019 by Marco Frye MD at [facility] Synthes I 204.836 / / Synthes 241.151 Lcp Combi 85q17r7.5mm 3 Hole Head 5 Hole Shaft Right Angle T - [id number] Implanted:Qty: 1 on 03/10/2019 by Marco Frye MD at [facility] Synthes I 241.151 / / Depuy Mitek [id number] Gii Quickanchor Plus Ethibond 2 Cp-2 [place] Suture - S0 - [id number] Implanted:Qty: 1 on 03/18/2020 by Arnaud Iraheta MD at [facility] Right: Elbow Depuy Mitek 07/11/2024 [id number] / 0 / [id number] Acumed Inc 30-0256 3.5mm 10mm Hexalobe Screw Bone Titanium Nonsterile Small Fragment - [id number] Implanted:Qty: 3 on 03/18/2020 by Diane Huff MD at [facility] Left: Radius Acumed Inc 30-0256 / / Acumed Inc 70-0370 Acu-Loc 2 65mm Reduce Profile Window Radius Left Distal Volar - [id number] Implanted:Qty: 1 on 03/18/2020 by Diane Huff MD at [facility] Left: Radius Acumed Inc 70-0370 / / Acumed Inc Co-N2320 2.3mm 20mm Nontoggle Hexagonal Cortical Screw Bone Titanium - [id number] Implanted:Qty: 1 on 03/18/2020 by Diane Huff MD at [facility] Left: Radius [employer] CO-N2320 / / Acumed Inc Co-T2316 2.3mm 16mm Lock Hexagonal Cortical Full Thread Screw Bone - [id number] Implanted:Qty: 4 on 03/18/2020 by Diane Huff MD at [facility] Left: Radius [employer] CO-T2316 / / Acumed Inc 30-0258 3.5mm 14mm Hexalobe Screw Bone Titanium Nonsterile Small Fragment - [id number] Implanted:Qty: 1 on 03/18/2020 by Diane Huff MD at [facility] Left: Radius Acumed Inc 30-0258 / / Synthes 2.7mm 5mm 18mm 2.5mm Self Tap Stardrive Cortical T8 Screw Bone 202.878 - [id number] Implanted:Qty: 2 on 01/15/2022 by Arnaud Iraheta MD at [facility] Right: Ankle Synthes I 202.878 / / Synthes Lcp Combi 99mm 5 Hole Fibula Right Distal Lateral Contour Plate 02.112.140 - [id number] Implanted:Qty: 1 on 01/15/2022 by Arnaud Iraheta MD at [facility] Right: Ankle Synthes I 02.112.140 / / Synthes 2.7mm 2.1mm 14mm Self Tap Lock Stardrive Thread Head Profile T8 202.214 - [id number] Implanted:Qty: 3 on 01/15/2022 by Arnaud Iraheta MD at [facility] Right: Ankle Synthes I 202.214 / / Synthes 2.7mm 2.1mm 16mm Self Tap Lock Stardrive Thread Head Profile T8 202.216 - [id number] Implanted:Qty: 2 on 01/15/2022 by Arnaud Iraheta MD at [facility] Right: Ankle Synthes I 202.216 / / Synthes 3.5mm 6mm 14mm 2.5mm Self Tap Small Hexagonal Socket Low Profile 204.814 - [id number] Implanted:Qty: 1 on 01/15/2022 by Arnaud Iraheta MD at [facility] Right: Ankle Synthes I 204.814 / / Synthes 3.5mm 6mm 12mm 2.5mm Self Tap Small Hexagonal Socket Low Profile 204.812 - [id number] Implanted:Qty: 2 on 01/15/2022 by Arnaud Iraheta MD at [facility] Right: Ankle Synthes I 204.812 / / Synthes 3.5mm 6mm 65mm 2.5mm Self Tap Small Hexagonal Socket Low Profile 204.865 - [id number] Implanted:Qty: 1 on 01/15/2022 by Arnaud Iraheta MD at [facility] Right: Ankle Synthes I 204.865 / / Explanted Type Area Director Of Collections Device Identifier Shelf Expiration Date Model / Serial / Lot Synthes 204.842 3.5mm 6mm 42mm 2.5mm Self Tap Small Hexagonal Socket Low Profile - [id number] Explanted:Qty: 1 on 03/10/2019 at [facility] Synthes I 204.842 / / Procedures Procedure Name Priority Date/Time Associated Diagnosis Comments HEPATITIS C ANTIBODY Routine 01/14/2022 10:11 PM CDT from Last 3 Months or Most Recently Relevant to Health Maintenance Results * Hepatitis C antibody (01/14/2022 10:11 PM CDT) Hep C Ab Nonreactive Nonreactive [facility] Comment:Antibodies to HCV no t detected. Does NOT exclude the possibility of recent exposure to HCV. Blood 01/14/2022 10:1 1 PM CDT 01/14/2022 11:24 PM CDT Dudley Siddiqui MD LAB MICROBIOLOGY - GENER AL ORDERABLES Edited Result - Final [facility] Department [place] [address] from Last 3 Months or Most Recently Relevant to Health Maintenance Insurance CIGNA CIGNA CIGNA Advance Directives For more information, please contact: [phone] * Full Code (Latest Code Status on File) Date Activated Date Inactivated Comments 01/15/2022 8:54 PM 01/17/2022 3:15 PM * Full Code Date Activated Date Inactivated Comments 01/14/2022 5:46 PM 01/15/2022 8:54 PM * Full Code Date Activated Date Inactivated Comments 03/17/2020 11:22 PM 03/19/2020 7:29 PM * Full Code Date Activated Date Inactivated Comments 03/03/2019 11:09 AM 03/05/2019 7:49 PM Care Teams Public Relations Specialist Relationship Specialty Start Date End Date Alfredo Healy DO PCP - General 05/23/20 No, Physician 03/19/20
--- OUTSIDE RECORDS SUMMARY | 2025-02-25 02:21 | XMS_ITS ---
Author Organization [facility] Address [address] [place] [address] Care Team Providers Care Rn Hemodialysis Charge Name Role Phone No, Physician Unavailable Alfredo Healy DO Primary Care Provider +1- [phone] Active Problems Problem Noted Date Diagnosed Date [...] (01/15/2022): Added automatically from request for surgery [id number] UTI (urinary tract infection) 03/03/2019 Acute pain [...] (03/17/2020): Added automatically from request for surgery [id number]
--- OUTSIDE RECORDS SUMMARY | 2025-02-25 02:21 | XMS_ITS | Clinical Summary ---
Author Organization [facility] Address [address] [place] [address] Care Team Providers Care Medical Planner Name Role Phone Maryann Ahn APRN-[facility] Primary Care Provider [phone] -[phone] Source Comments [facility],non-owned Affiliates and Associated Physician Practices is amultiple site organization consisting of ambulatory clinics and hospital sitesin [place], [place], [place] and [place]. This disclosure is being madepursuant to the Care Everywhere program and may not contain all information available regarding this patient. Last updated 18.[facility] [employer] Allergies Active Allergy Reactions Criticality Noted Date [...] Encounters Date Type Department Care Team Description 02/18/2025 9:00 AM CDT Procedure visit [facility] - Neurology [address] [place] [phone] Ludwig Clark MD Tremor, essential 02/18/2025 Travel 02/01/2025 9:00 AM CDT Office Visit [facility] - Neurology [address] [place] [phone] Safia Mayberry APRN-[facility] Tremor, essential (Primary Dx); Pre-op evaluation 02/01/2025 Travel from Last 3 Months Social History Tobacco Use Types Packs/Day Years Used Date Smoking Tobacco: Never Assessed PHQ-2 Answer Date Recorded Patient Health Questionnaire-2 Score 0 02/18/2025 Comments Unknown Sex and Gender Information Value Date Recorded Sex Assigned at Not on file Legal Sex Female 10:42 AM CDT Gender Identity Not on file Sexual Orientation Not on file Last Filed Vital Signs Vital Sign Reading Time Taken Comments Blood Pressure 116/66 02/18/2025 8:54 AM CDT Pulse 60 02/18/2025 8:54 AM CDT Temperature - - Respiratory Rate - - Oxygen Saturation 97% 02/18/2025 8:54 AM CDT Inhaled Oxygen Concentration - - Weight 70.3 kg (155 lb) 02/18/2025 8:54 AM CDT Height 167.6 cm (5' 6) 02/18/2025 8:54 AM CDT Body Mass Index 25.02 02/18/2025 8:54 AM CDT Plan of Treatment Upcoming Encounters Date Type Department Care Team (Late st Contact Info) Description 03/18/2025 9:00 AM CDT Office Visit [facility] - Neurosurgery [address] [place] [phone] Gerson Lang MD [address] [place] [address] [place] [address] 06/08/2025 6:30 AM CDT Appointment [facility] MRI [address] [place] [address] JefeRohitjennifer, PERSONNEL TRAINING OFFICER-[facility] [address] [facility] [address] [place] [phone] 06/08/2025 7:40 AM CDT Appointment [facility] CAT SCAN [address] [place] [phone] Jefe Rohitjennifer, PERSONNEL TRAINING OFFICER-[employer] AND [employer]ER [address] [facility] [address] [place] [phone] Health Maintenance Due Date Last Done Comments [...] 06/05/2013 LIPID TESTING 10/09/2022 10/09/2017 COVID-19 VACCINE ( - 2023-2 5 season) 2024 MEDICARE AWV CALENDAR YEAR 2024 INFLUENZA VACCINE (#1) 2025 Respiratory Syncytial Virus (RSV) Vaccine Pt: or over 60 yrs (1 - 1-dose 75+ series) 2034 DEPRESSION SCREENING Completed 02/18/2025 HEPATITIS B VACCINE Aged Out No longe [...] topic Insurance AETNA MEDICARE ADV Care Teams Medical Planner Relationship Specialty Start Date End Date Maryann Ahn, PERSONNEL TRAINING OFFICER-[employer] [address] [place], [place] [id number] PCP - General Nurse Practitioner 12/07/24
--- OUTSIDE RECORDS SUMMARY | 2025-02-25 02:22 | XMS_ITS | Clinical Summary ---
Author Organization [facility] Address [address] [place] [address] Care Team Providers Care Prep Cook Name Role Phone Unavailable Primary Care Provider Unavailabl e Social History Tobacco Use Types Packs/Day Years Used Date Smoking Tobacco: Never Assessed Comments Unknown Sex and Gender Information Value Date Recorded Sex Assigned at Not on file Legal Sex Female 1:05 PM RIGGING SLINGER Gender Identity Not on file Sexual Orientation [...]
--- OUTSIDE RECORDS SUMMARY | 2025-02-25 02:22 | XMS_ITS | Referral Summary ---
Author Organization [facility] Address [address] [place] [address] Care Team Providers Care Credit Portfolio Manager Name Role Phone No, Physician Unavailable Alfredo Healy DO Primary Care Provider +1- [phone] Allergies Active Allergy Reactions Criticality Noted Date [...] (01/15/2022): Added automatically from request for surgery [id number] UTI (urinary tract infection) 03/03/2019 Acute pain [...] (03/17/2020): Added automatically from request for surgery [id number] Immunizations Immunization Administration Dates Next Due Tdap [...] any clubs o r organizations such as mormon groups, unions, fraternal or athletic groups, or [...] place to sleep or slept in a residential (including now)? No 01/18/2022 Comments No Sex [...] on file Medical Devices Implanted Type Area Benefits Director Device Identifier Shelf Expiration Date Model / Serial / Lot Synthes Carbon Timo Implanted:Qty: 1 on 03/03/2019 by Marco Frye MD at [facility] Left: Leg Synthes I 394.88 / / Description:IMPLANT TIMES AR E APPROXIMATED 11 X 450 Carbon Timo Implanted:Qty: 1 on 03/03/2019 by Marco Frye MD at [facility] Left: Leg Synthes I 13954 / / Description:IMPLANT TIMES AR E APPROXIMATED 11 X 400 Carbon Timo Implanted:Qty: 1 on 03/03/2019 by Marco Frye MD at [facility] Left: Leg Synthes I 36993 / / Description:IMPLANT TIMES AR E APPROXIMATED 11 X 200 Carbon Timo Implanted:Qty: 1 on 03/03/2019 by Marco Frye MD at [facility] Left: Leg Synthes I 74406 / / Description:IMPLANT TIMES AR E APPROXIMATED Large Combo Clamp Implanted:Qty: 7 on 03/03/2019 by Marco Frye MD at [facility] Left: Leg Synthes I 604809 / / Description:IMPLANT TIMES AR E APPROXIMATED Synthes 294.55 Schanz 5mm 170mm 50mm Blunt Trocar Point Xlong Screw External - [id number] Implanted:Qty: 2 on 03/03/2019 by Marco Frye MD at [facility] Left: Leg Synthes I 294.55 / / Description:IMPLANT TIMES AR E APPROXIMATED Trans Calc Pin Implanted:Qty: 1 on 03/03/2019 by Marco Frye MD at [facility] Left: Leg Synthes I 067873 / / Description:IMPLANT TIMES AR E APPROXIMATED Protective Cap 5.0 Implanted:Qty: 1 on 03/03/2019 by Marco Frye MD at [facility] Left: Leg Synthes I 393203 / / Description:IMPLANT TIMES AR E APPROXIMATED Synthes 204.830 3.5mm 6mm 30mm 2.5mm Self Tap Small Hexagonal Socket Low Profile - [id number] Implanted:Qty: 1 on 03/10/2019 by Marco Frye MD at [facility] Synthes I 204.830 / / Synthes 204.828 3.5mm 6mm 28mm 2.5mm Self Tap Small Hexagonal Socket Low Profile - [id number] Implanted:Qty: 1 on 03/10/2019 by Marco Frye MD at [facility] Synthes I 204.828 / / Synthes 204.826 3.5mm 6mm 26mm 2.5mm Self Tap Small Hexagonal Socket Low Profile - [id number] Implanted:Qty: 1 on 03/10/2019 by Marco Frye MD at [facility] Synthes I 204.826 / / Synthes 204.842 3.5mm 6mm 42mm 2.5mm Self Tap Small Hexagonal Socket Low Profile - [id number] Implanted:Qty: 2 on 03/10/2019 by Marco Frye MD at [facility] Synthes I 204.842 / / Synthes 247.370 Lcp Pro-Serg 97mm 12 Hole Adaption Low Profile Cut To Length Plate - [id number] Implanted:Qty: 1 on 03/10/2019 by Marco Frye MD at [facility] Synthes I 247.370 / / Synthes 202.878 2.7mm 5mm 18mm 2.5mm Self Tap Stardrive Cortical T8 Screw Bone - [id number] Implanted:Qty: 1 on 03/10/2019 by Marco Frye MD at [facility] Synthes I 202.878 / / Synthes 202.880 2.7mm 5mm 20mm 2.5mm Self Tap Stardrive Cortical T8 Screw Bone - [id number] Implanted:Qty: 1 on 03/10/2019 by Marco Frye MD at [facility] Synthes I 202.880 / / Synthes 202.876 2.7mm 5mm 16mm 2.5mm Self Tap Stardrive Cortical T8 Screw Bone - [id number] Implanted:Qty: 2 on 03/10/2019 by Marco Frye MD at [facility] Synthes I 202.876 / / Synthes 202.888 2.7mm 5mm 28mm 2.5mm Self Tap Stardrive Cortical T8 Screw Bone - [id number] Implanted:Qty: 1 on 03/10/2019 by Marco Frye MD at [facility] Synthes I 202.888 / / Synthes 202.886 2.7mm 5mm 26mm 2.5mm Self Tap Stardrive Cortical T8 Screw Bone - [id number] Implanted:Qty: 1 on 03/10/2019 by Marco Frye MD at [facility] Synthes I 202.886 / / Synthes 241.361 Lcp 12mm 85b9q1hs .7mm 6 Hole Collar 1/3 Tubular Plate Bone - [id number] Implanted:Qty: 1 on 03/10/2019 by Marco Frye MD at [facility] Synthes I 241.361 / / Synthes 204.875 3.5mm 6mm 75mm 2.5mm Self Tap Small Hexagonal Socket Low Profile - [id number] Implanted:Qty: 1 on 03/10/2019 by Marco Frye MD at [facility] Synthes I 204.875 / / Synthes 204.870 3.5mm 6mm 70mm 2.5mm Self Tap Small Hexagonal Socket Low Profile - [id number] Implanted:Qty: 1 on 03/10/2019 by Marco Frye MD at [facility] Synthes I 204.870 / / Synthes 204.840 3.5mm 6mm 40mm 2.5mm Self Tap Small Hexagonal Socket Low Profile - [id number] Implanted:Qty: 1 on 03/10/2019 by Marco Frye MD at [facility] Synthes I 204.840 / / Synthes 204.836 3.5mm 6mm 36mm 2.5mm Self Tap Small Hexagonal Socket Low Profile - [id number] Implanted:Qty: 1 on 03/10/2019 by Marco Frye MD at [facility] Synthes I 204.836 / / Synthes 241.151 Lcp Combi 53v84y6.5mm 3 Hole Head 5 Hole Shaft Right Angle T - [id number] Implanted:Qty: 1 on 03/10/2019 by Marco Frye MD at [facility] Synthes I 241.151 / / Depuy Mitek 211428 Gii Quickanchor Plus Ethibond 2 Cp-2 Justice Suture - S0 - [id number] Implanted:Qty: 1 on 03/18/2020 by Arnaud Iraheta MD at [facility] Right: Elbow Depuy Mitek 07/11/2024 250706 / 0 / [id number] Acumed Inc 30-0256 3.5mm 10mm Hexalobe Screw Bone Titanium Nonsterile Small Fragment - [id number] Implanted:Qty: 3 on 03/18/2020 by Diane Huff MD at [facility] Left: Radius Ac[employer] Inc 30-0256 / / Acumed Inc 70-0370 Acu-Loc 2 65mm Reduce Profile Window Radius Left Distal Volar - [id number] Implanted:Qty: 1 on 03/18/2020 by Diane Huff MD at [facility] Left: Radius [employer] Inc 70-0370 / / Acumed Inc Co-N2320 2.3mm 20mm Nontoggle Hexagonal Cortical Screw Bone Titanium - [id number] Implanted:Qty: 1 on 03/18/2020 by Diane Huff MD at [facility] Left: Radius [employer] CO-N2320 / / Ac[employer] Inc Co-T2316 2.3mm 16mm Lock Hexagonal Cortical Full Thread Screw Bone - [id number] Implanted:Qty: 4 on 03/18/2020 by Diane Huff MD at [facility] Left: Radius [employer] CO-T2316 / / Acumed Inc 30-0258 3.5mm 14mm Hexalobe Screw Bone Titanium Nonsterile Small Fragment - [id number] Implanted:Qty: 1 on 03/18/2020 by Diane Huff MD at [facility] Left: Radius [employer] Inc 30-0258 / / Synthes 2.7mm 5mm 18mm 2.5mm Self Tap Stardrive Cortical T8 Screw Bone 202.878 - [id number] Implanted:Qty: 2 on 01/15/2022 by Arnaud Iraheta MD at [facility] Right: Ankle Synthes I 202.878 / / Synthes Lcp Combi 99mm 5 Hole Fibula Right Distal Lateral Contour Plate 02140 - [id number] Implanted:Qty: 1 on 01/15/2022 by Arnaud Iraheta MD at [facility] Right: Ankle Synthes I 02112.140 / / Synthes 2.7mm 2.1mm 14mm Self Tap Lock Stardrive Thread Head Profile T8 202.214 - [id number] Implanted:Qty: 3 on 01/15/2022 by Arnaud Iraheta MD at [facility] Right: Ankle Synthes I 202.214 / / Synthes 2.7mm 2.1mm 16mm Self Tap Lock Stardrive Thread Head Profile T8 202.216 - [id number] Implanted:Qty: 2 on 01/15/2022 by Arnaud Iraheta MD at [facility] Right: Ankle Synthes I 202.216 / / Synthes 3.5mm 6mm 14mm 2.5mm Self Tap Small Hexagonal Socket Low Profile 204.814 - [id number] Implanted:Qty: 1 on 01/15/2022 by Arnaud Iraheta MD at [facility] Right: Ankle Synthes I 204.814 / / Synthes 3.5mm 6mm 12mm 2.5mm Self Tap Small Hexagonal Socket Low Profile 204.812 - [id number] Implanted:Qty: 2 on 01/15/2022 by Arnaud Iraheta MD at [facility] Right: Ankle Synthes I 204.812 / / Synthes 3.5mm 6mm 65mm 2.5mm Self Tap Small Hexagonal Socket Low Profile 204.865 - [id number] Implanted:Qty: 1 on 01/15/2022 by Arnaud Iraheta MD at [facility] Right: Ankle Synthes I 204.865 / / Explanted Type Area Benefits Director Device Identifier Shelf Expiration Date Model / Serial / Lot Synthes 204.842 3.5mm 6mm 42mm 2.5mm Self Tap Small Hexagonal Socket Low Profile - [id number] Explanted:Qty: 1 on 03/10/2019 at [facility] Synthes I 204.842 / / Procedures [...] AL ORDERABLES Edited Result - Final [facility] [place] [address] from Last 3 Months or Most Recently Relevant to Health Maintenance Insurance CIGNA CIGNA CIGNA Advance Directives For more information, please contact: [phone] * Full Code (Latest Code Status on File) Date Activated Date Inactivated Comments 01/15/2022 8:54 PM 01/17/2022 3:15 PM * Full Code Date Activated Date Inactivated Comments 01/14/2022 5:46 PM 01/15/2022 8:54 PM * Full Code Date Activated Date Inactivated Comments 03/17/2020 11:22 PM 03/19/2020 7:29 PM * Full Code Date Activated Date Inactivated Comments 03/03/2019 11:09 AM 03/05/2019 7:49 PM Care Teams Credit Portfolio Manager Relationship Specialty Start Date End Date Alfredo Healy DO PCP - General 05/23/20 No, Physician 03/19/20
[2025-02-25 08:38] VITALS: BP 116/76; PULSE 57; RESP 16; TEMP 36.3; O2SAT 99
[2025-02-25] MEDS: LACTATED RINGERS 1,000 ML 150 ML IV CONT (08:45)
--- NOTE | 2025-02-25 09:01 | WPDANESEPPF ---
Anes - Initial Pre Proc Eval Procedure: Operation Date: 02/25/25 10:00 Proposed Procedures p Screening Colonoscopy - Armando Hansen MD Date/Time: 02/25/25 09:01 Surgeon: Armando Hansen MD Pre Op Diagnosis: Encounter for screening for malignant neoplasm of Patient Data Age: 64 Gender: F Height: 1.65 m Weight: 68.8 kg Last Vital Signs Temp 97.3 F L 02/25/25 08:38 Pulse 57 L 02/25/25 08:38 Resp 16 02/25/25 08:38 BP 116/76 02/25/25 08:38 Pulse Ox 99 02/25/25 08:38 O2 Del Method Room Air 02/25/25 08:38 Allergies Allergy/AdvReac Type Severity Reaction Status Date / Time Sulfa (Sulfonamide Allergy Unknown Childhood Verified 02/25/25 08:34 Antibiotics) allergy Home Medications ?Medication ?Instructions ?Recorded ?Confirmed ?Type cholecalciferol (vitamin D3) 50 2,000 unit PO DAILY 08/07/19 02/25/25 History mcg (2,000 unit) capsule (Vitamin D3) hydroxyzine HCl 10 mg tablet 10 mg PO BID PRN anxiety #180 tabs 06/23/21 02/25/25 Rx calcium carbonate (Calcium 500) 500 mg PO DAILY 11/06/23 02/25/25 History escitalopram oxalate 20 mg tablet See Rx Instructions .Route 11/09/24 02/25/25 Rx .COMPLEX #90 tabs bupropion HCl 150 mg 24 hr tablet, 150 mg PO QAM #90 tabs 11/11/24 02/25/25 Rx extended release (Wellbutrin XL) gabapentin 100 mg capsule 100 mg PO BID 90 days #180 caps 12/10/24 02/25/25 Rx gabapentin 300 mg capsule 300 mg PO BID 90 days #180 caps 12/10/24 02/25/25 Rx primidone 50 mg tablet 50 mg PO HS 02/09/25 02/25/25 History Patient hx anesthesia problems: none Family hx anesthesia problems: none Results Review: All pre-operative results and documents have been reviewed as part of the pre-operative evaluation. FORMERLY [facility], [facility] Past Medical History Medical History Anxiety and depression Tremor Elevated BP without diagnosis of hypertension Tobacco abuse Post-menopausal Bradycardia Surgical History Surgical History History of elbow surgery Right elbow History of surgery on left wrist H/O foot surgery X2 Left 02/2019 Family History Family History Mother Patient's mother is in good health Family history of arthritis Grandparent Cerebrovascular accident Father Liver disease Social History Social History Social History: Caffeine-occasionally Smoking packs per day: 0.5 Smoking cigarettes per day: 10.0 Years smoked: 40 Smoking pack-years: 20.00 Smoking status: Current every day smoker Tobacco type: cigarettes Alcohol intake: never Substance use: never Substance use type: does not use Do You Feel Safe in your Home?: Yes Lack of Transportation: No Lack of Food: Never True Current Housing: I Have Housing Concerned About Future Housing: No Difficulty Paying Gas/Electric Bills: No Difficulty Paying for Meds: No Currently Unemployed: No Education: Trade/Vocational Certificate Difficulty w/ Childcare or Family Care: No Living arrangements: with family Additional living arrangements comments: with jada Chapman Final PreProcedure Day of Procedure 02/25/25 09:01 Patient weight: overweight Lungs: normal air movement Airway: Mallampati scale class II Neurological: alert and oriented Last oral intake: >/= 8 hours ASA classification: II Emergent: no Anesthetic plan: proceed Anesthesia type and monitoring: general GIVS and standard monitoring Results Review: All pre-operative results and documents have been reviewed as part of the pre-operative evaluation. Smoker, 1/2 ppd for many years, states she quit 1 week ago. Anxiety by hx. Informed Consent: The patient's anesthetic plan and its attendant risks and benefits were discussed with the patient/family/POA. Questions were solicited and answers provided to the satisfaction of the patient/family/POA.
--- NOTE | 2025-02-25 09:08 | PM.IMHP ---
H&P: HPI History of Present Illness Date/Time: 02/25/25 09:08 Chief Complaint: Screening colonoscopy Narrative: This is the patient's first colonoscopy. There are no GI symptoms and there is no family history of colorectal cancer. Review of Systems Review of Systems: All systems reviewed & are unremarkable except as noted in HPI and below PMFSH Past Medical History Medical History Anxiety and depression Tremor Elevated BP without diagnosis of hypertension Tobacco abuse Post-menopausal Bradycardia Surgical History Surgical History History of elbow surgery Right elbow History of surgery on left wrist H/O foot surgery X2 Left 02/2019 Family History Family History Mother Patient's mother is in good health Family history of arthritis Grandparent Cerebrovascular accident Father Liver disease Social History Social History Social History: Caffeine-occasionally Smoking packs per day: 0.5 Smoking cigarettes per day: 10.0 Years smoked: 40 Smoking pack-years: 20.00 Smoking status: Current every day smoker Tobacco type: cigarettes Alcohol intake: never Substance use: never Substance use type: does not use Do You Feel Safe in your Home?: Yes Lack of Transportation: No Lack of Food: Never True Current Housing: I Have Housing Concerned About Future Housing: No Difficulty Paying Gas/Electric Bills: No Difficulty Paying for Meds: No Currently Unemployed: No Education: Trade/Vocational Certificate Difficulty w/ Childcare or Family Care: No Living arrangements: with family Additional living arrangements comments: with sp Meds Home Medications and Allergies Home Medications ?Medication ?Instructions ?Recorded ?Confirmed ?Type cholecalciferol (vitamin D3) 50 2,000 unit PO DAILY 08/07/19 02/25/25 History mcg (2,000 unit) capsule (Vitamin D3) hydroxyzine HCl 10 mg tablet 10 mg PO BID PRN anxiety #180 tabs 06/23/21 02/25/25 Rx calcium carbonate (Calcium 500) 500 mg PO DAILY 11/06/23 02/25/25 History escitalopram oxalate 20 mg tablet See Rx Instructions .Route 11/09/24 02/25/25 Rx .COMPLEX #90 tabs bupropion HCl 150 mg 24 hr tablet, 150 mg PO QAM #90 tabs 11/11/24 02/25/25 Rx extended release (Wellbutrin XL) gabapentin 100 mg capsule 100 mg PO BID 90 days #180 caps 12/10/24 02/25/25 Rx gabapentin 300 mg capsule 300 mg PO BID 90 days #180 caps 12/10/24 02/25/25 Rx primidone 50 mg tablet 50 mg PO HS 02/09/25 02/25/25 History Allergies Allergy/AdvReac Type Severity Reaction Status Date / Time Sulfa (Sulfonamide Allergy Unknown Childhood Verified 02/25/25 08:34 Antibiotics) allergy Vital Signs Vital Signs - 24 hr 02/25/25 08:38 Temperature 97.3 F L Pulse Rate 57 L Respiratory Rate 16 Blood Pressure 116/76 Pulse Oximetry 99 Oxygen Delivery Room Air Exam Const: General: cooperative and healthy appearing Resp: Effort & Inspection: normal respiratory effort and able to speak in complete sentences Auscultation: clear to auscultation bilaterally Cardio: Rate: regular rate Rhythm: regular rhythm GI: Inspection: normal to inspection GI Palp: No No hepatosplenomegaly present Auscultation: normal bowel sounds Rectal Exam: deferred Skin: General skin exam: normal color Psych: Appearance: grossly normal Mental Status: mental status grossly normal Assessment and Plan Assessment and plan (1) Screening for colon cancer: Code(s): Z12.11 - Encounter for screening for malignant neoplasm of colon Status: Acute Assessment and Plan: The patient is deemed a good candidate for the procedure. Consent signed. Will proceed.
[2025-02-25 09:31] VITALS: BP 84/42; PULSE 49; RESP 12; O2SAT 97
[2025-02-25 09:41] VITALS: BP 88/48; PULSE 50; RESP 20; O2SAT 97
[2025-02-25 09:51] VITALS: BP 106/48; PULSE 53; RESP 17; O2SAT 97
== END 2025-02-25 10:00 | disposition home or self-care (01) ==
PROVIDERS: PCP Internal Medicine; Referring Provider Nurse Practitioner; Visit Provider Internal Medicine Gastroenterology
PROC: 0DJD8ZZ Inspection of Lower Intestinal Tract, Via Natural or Artificial Opening Endoscopic (ICD-10-PCS; CPT 45378; principal; 2025-02-25 10:00)
DX: Z12.11 Encounter for screening for malignant neoplasm of colon (principal); K64.8 Other hemorrhoids; F17.210 Nicotine dependence, cigarettes, uncomplicated
CPT/HCPCS: G0121; J2003; J2704; J7120